=== PATIENT | male | born 1985 | race Caucasian/White ===

== ENCOUNTER 2019-03-15 00:48 | Inpatient (IN) | payer BC ==
[2019-03-15] MEDS ORDERED: MORPHINE SULFATE 4 MG/ML SYRINGE IV STA (01:15)
[2019-03-15] MEDS ORDERED: SODIUM CHLORIDE 0.9% 1,000 ML IV STA ×2 (01:15→02:48)
[2019-03-15] MEDS ORDERED: ONDANSETRON 4 MG/2 ML VIAL IVP STA (01:15)
[2019-03-15 01:53] LABS: Basophils # (A) 0.1 k/uL (0-0.2); Basophils % (A) 1 %; Eosinophils # (A) 0.2 k/uL (0-0.7); Eosinophils % (A) 1 %; HGB 18.6 gm/dL (13.0-17.5); Lymphocytes # (A) 0.7 k/uL (1.0-4.8); Lymphocytes % (A) 5 %; MCHC 34.5 g/dL (31.0-37.0); MCV 84.2 fL (80.0-100.0); Mean Platelet Volume 7.1; Monocytes # (A) 0.4 k/uL (0-1.0); Monocytes % (A) 3 %; Neutrophils # (A) 12.8 k/uL (1.3-7.7); Neutrophils % (A) 90 %; Platelet Count 317 k/uL (150-450); RBC 6.42 m/uL (4.30-5.90); RDW 12.4 % (11.5-15.5); WBC 14.2 k/uL (3.8-10.6)
[2019-03-15 01:58] LABS: Partial Thromboplastin Time 26.3 sec (22.0-30.0)
[2019-03-15 02:03] LABS: ALT 232 U/L (4-49); AST 303 U/L (17-59); African American GFR (CKD) >90 (>60 ml/min/1.73 sqM); Albumin 4.7 g/dL (3.5-5.0); Alkaline Phosphatase 114 U/L (38-126); Anion Gap 10 mmol/L; Blood Urea Nitrogen 15 mg/dL (9-20); Calcium 10.2 mg/dL (8.4-10.2); Carbon Dioxide 24 mmol/L (22-30); Chloride 107 mmol/L (98-107); Glucose 155 mg/dL (74-99); Non-African American GFR(CKD) >90 (>60 ml/min/1.73 sqM); Potassium 4.5 mmol/L (3.5-5.1); Sodium 141 mmol/L (137-145); Total Bilirubin 2.6 mg/dL (0.2-1.3); Total Protein 8.2 g/dL (6.3-8.2)
--- NOTE | 2019-03-15 02:11 | US ---
EXAMINATION TYPE: US gallbladder DATE OF EXAM: 03/15/2019 COMPARISON: NONE CLINICAL HISTORY: pain, vomit. Pain x 2 months, vomiting. EXAM MEASUREMENTS: Liver Length: 19.03 cm Gallbladder Wall: 0.27 cm CBD: 0.78 cm Right Kidney: 12.1 x 6.7 x 4.8 cm *Limited due to gas and body habitus. Pancreas: Obscured by overlying bowel gas. Liver: Appears to have an increased echogenicity. Measures enlarged. Hypoechoic area seen adjacent t o the gallbladder suggestive of focal fatty sparing measurin.2 x 1.5 x 1.4 cm. Gallbladder: Appears distended measuring 10.47 cm in length. Hyperechoic areas seen throughout the g allbladder. Evidence for sonographic Michael's sign: Yes CBD: Appears dilated. Right Kidney: No hydronephrosis or masses seen IMPRESSION: There are numerous gallstones. Large common bile duct could relate to gallbladder dysfunc tion. There is probably fatty infiltration of the liver.
[2019-03-15] MEDS ORDERED: IBUPROFEN 400 MG TAB PO PRN (02:32)
[2019-03-15] MEDS ORDERED: NALOXONE 0.4 MG/ML 1 ML VIAL IV PRN (02:32)
[2019-03-15] MEDS ORDERED: ONDANSETRON 4 MG/2 ML VIAL IVP PRN (02:32)
[2019-03-15] MEDS ORDERED: ACETAMINOPHEN TAB 325 MG TAB PO PRN (02:32)
--- NOTE | 2019-03-15 02:32 | ED ---
Abdominal Pain HPI - General Chief Complaint: Abdominal Pain Stated Complaint: Abdominal Pain Time Seen by Provider: 03/15/19 00:55 Source: patient Mode of arrival: ambulatory Limitations: no limitations - History of Present Illness Initial Comments: the patient is a 33-year-old male with no past medical history who presents emergency room with reported right upper quadrant abdominal pain. He states that his been present for the past few months. He will have episodes of pain which is usually after he eats food. States he went on a diet for several weeks and had improvement in his symptoms. Tonight he ate pizza for dinner and approximately 30 minutes after eating had sudden onset of right upper quadrant pain. It radiates around to his right back. She denies any fevers or chills. Admits to significant nausea with vomiting. Denies hematemesis. Denies any changes in his bowel or bladder habits. At any chest pain or shortness of breath. No pain radiating into his lower extremity. No ripping or tearing sensation to his back.not take any medications for her symptoms became prompting to the emergency room. There are no alleviating, precipitating or modifying factors - Related Data Previous Rx's Medication Instructions Recorded Amoxic-Pot Clav 875-125Mg 1 tab PO Q12HR #6 tablet 03/17/19 [Augmentin 875-125] Hydrocodone/Acetaminophen [[place] 1 tab PO Q6HR PRN 3 Days #12 tab 03/17/19 5-325] Allergies Allergy/AdvReac Type Severity Reaction Status Date / Time No Known Allergies Allergy Verified 03/20/19 08:22 Review of Systems ROS Statement: Those systems with pertinent positive or pertinent negative responses have been documented in the HPI. ROS Other: All systems not noted in ROS Statement are negative. Past Medical History Past Medical History: No Reported History History of Any Multi-Drug Resistant Organisms: None Reported Past Surgical History: No Surgical Hx Reported Past Psychological History: No Psychological Hx Reported Smoking Status: Never smoker Past Alcohol Use History: None Reported Past Drug Use History: Marijuana - Past Family History Father Additional Family Medical History / Comment(s): some kind of mass in the head Mother Additional Family Medical History / Comment(s): twisted intestine General Exam Limitations: no limitations General appearance: alert, in no apparent distress Head exam: Present: atraumatic, normocephalic, normal inspection Eye exam: Present: normal appearance, PERRL, EOMI. Absent: scleral icterus, conjunctival injection, periorbital swelling ENT exam: Present: normal exam, mucous membranes moist Neck exam: Present: normal inspection. Absent: tenderness, meningismus, l ymphadenopathy Respiratory exam: Present: normal lung sounds bilaterally. Absent: respiratory distress, wheezes, rales, rhonchi, stridor Cardiovascular Exam: Present: regular rate, normal rhythm, normal heart sounds. Absent: systolic murmur, diastolic murmur, rubs, gallop, clicks GI/Abdominal exam: Present: soft, tenderness (right upper quadrant), normal bowel sounds. Absent: distended, guarding, rebound, rigid Extremities exam: Present: normal inspection, full ROM, normal capillary refill. Absent: tenderness, pedal edema, joint swelling, calf tenderness Back exam: Present: normal inspection Neurological exam: Present: alert, oriented X3, CN II-XII intact Psychiatric exam: Present: normal affect, normal mood Skin exam: Present: warm, dry, intact, normal color. Absent: rash Course Vital Signs 03/15/19 00:55 Temperature 98.1 F Pulse Rate 86 Respiratory 20 Rate Blood Pressure 151/78 O2 Sat by Pulse 97 Oximetry Medical Decision Making - Medical Decision Making upon arrival the patient is placed into room 3. A thorough history and physical exam is performed. A peripheral IV is established. He is given 4 mg of Zofran for his nausea and 4 mg of morphine for pain control. Laboratory studies were conducted. It does demonstrate elevated white blood cell count as well as elevated AST and ALT. Bilirubin is 2.6. GB ultrasound demonstrates numerous gallstones with dilated common bile duct at 8 mm. I discussed diagnosis, differential treatment options patient. Serial abdominal exams demonstrate no peritoneal signs. I did recommend hospital admission for which patient did agree. Dr. Chavez was called and accepted admission. I'll place GI and surgery on consult. Patient was transported to the floor in stable condition - Lab Data Result diagrams: 03/17/19 05:38 03/17/19 05:38 Lab Results 03/15/19 03/15/19 03/15/19 Range/Units 01:34 01:34 01:34 WBC 14.2 H (3.8-10.6) k/uL RBC 6.42 H (4.30-5.90) m/uL Hgb 18.6 H (13.0-17.5) gm/dL Hct 54.0 H (39.0-53.0) % MCV 84.2 (80.0-100.0) fL MCH 29.0 (25.0-35.0) pg MCHC 34.5 (31.0-37.0) g/dL RDW 12.4 (11.5-15.5) % Plt Count 317 (150-450) k/uL Neutrophils % 90 % Lymphocytes % 5 % Monocytes % 3 % Eosinophils % 1 % Basophils % 1 % Neutrophils # 12.8 H (1.3-7.7) k/uL Lymphocytes # 0.7 L (1.0-4.8) k/uL Monocytes # 0.4 (0-1.0) k/uL Eosinophils # 0.2 (0-0.7) k/uL Basophils # 0.1 (0-0.2) k/uL PT 11.0 (9.0-12.0) sec INR 1.0 (<1.2) APTT 26.3 (22.0-30.0) sec Sodium 141 (137-145) mmol/L Potassium 4.5 (3.5-5.1) mmol/L Chloride 107 (98-107) mmol/L Carbon Dioxide 24 (22-30) mmol/L Anion Gap 10 mmol/L BUN 15 (9-20) mg/dL Creatinine 0.84 (0.66-1.25) mg/dL Est GFR (CKD-EPI)AfAm >90 (>60 ml/min/1.73 sqM) Est GFR (CKD-EPI)NonAf >90 (>60 ml/min/1.73 sqM) Glucose 155 H (74-99) mg/dL Calcium 10.2 (8.4-10.2) mg/dL Total Bilirubin 2.6 H (0.2-1.3) mg/dL AST 303 H (17-59) U/L ALT 232 H (4-49) U/L Alkaline Phosphatase 114 (38-126) U/L Total Protein 8.2 (6.3-8.2) g/dL Albumin 4.7 (3.5-5.0) g/dL Lipase 112 (23-300) U/L 03/15/19 03/15/19 03/16/19 Range/Units 07:30 07:30 05:30 WBC 10.0 9.4 (3.8-10.6) k/uL RBC 6.24 H 5.73 (4.30-5.90) m/uL Hgb 18.1 H 16.4 (13.0-17.5) gm/dL Hct 54.0 H 50.1 (39.0-53.0) % MCV 86.6 87.4 (80.0-100.0) fL MCH 29.0 28.7 (25.0-35.0) pg MCHC 33.5 32.8 (31.0-37.0) g/dL RDW 12.7 12.7 (11.5-15.5) % Plt Count 310 255 (150-450) k/uL Neutrophils % 57 % Lymphocytes % 29 % Monocytes % 7 % Eosinophils % 5 % Basophils % 1 % Neutrophils # 5.4 (1.3-7.7) k/uL Lymphocytes # 2.7 (1.0-4.8) k/uL Monocytes # 0.7 (0-1.0) k/uL Eosinophils # 0.4 (0-0.7) k/uL Basophils # 0.1 (0-0.2) k/uL PT (9.0-12.0) sec INR (<1.2) APTT (22.0-30.0) sec Sodium 143 (137-145) mmol/L Potassium 4.4 (3.5-5.1) mmol/L Chloride 108 H (98-107) mmol/L Carbon Dioxide 28 (22-30) mmol/L Anion Gap 7 mmol/L BUN 13 (9-20) mg/dL Creatinine 0.93 (0.66-1.25) mg/dL Est GFR (CKD-EPI)AfAm >90 (>60 ml/min/1.73 sqM) Est GFR (CKD-EPI)NonAf >90 (>60 ml/min/1.73 sqM) Glucose 105 H (74-99) mg/dL Calcium 9.7 (8.4-10.2) mg/dL Total Bilirubin 2.6 H (0.2-1.3) mg/dL AST 338 H (17-59) U/L ALT 349 H (4-49) U/L Alkaline Phosphatase 86 (38-126) U/L Total Protein 7.1 (6.3-8.2) g/dL Albumin 4.0 (3.5-5.0) g/dL Lipase (23-300) U/L 03/16/19 03/16/19 03/17/19 Range/Units 05:30 05:30 05:38 WBC 13.5 H (3.8-10.6) k/uL RBC 5.53 (4.30-5.90) m/uL Hgb 16.1 (13.0-17.5) gm/dL Hct 48.1 (39.0-53.0) % MCV 86.9 (80.0-100.0) fL MCH 29.1 (25.0-35.0) pg MCHC 33.5 (31.0-37.0) g/dL RDW 12.5 (11.5-15.5) % Plt Count 286 (150-450) k/uL Neutrophils % % Lymphocytes % % Monocytes % % Eosinophils % % Basophils % % Neutrophils # (1.3-7.7) k/uL Lymphocytes # (1.0-4.8) k/uL Monocytes # (0-1.0) k/uL Eosinophils # (0-0.7) k/uL Basophils # (0-0.2) k/uL PT (9.0-12.0) sec INR (<1.2) APTT (22.0-30.0) sec Sodium 141 (137-145) mmol/L Potassium 4.3 (3.5-5.1) mmol/L Chloride 107 (98-107) mmol/L Carbon Dioxide 28 (22-30) mmol/L Anion Gap 6 mmol/L BUN 11 (9-20) mg/dL Creatinine 1.01 (0.66-1.25) mg/dL Est GFR (CKD-EPI)AfAm >90 (>60 ml/min/1.73 sqM) Est GFR (CKD-EPI)NonAf >90 (>60 ml/min/1.73 sqM) Glucose 94 (74-99) mg/dL Calcium 9.0 (8.4-10.2) mg/dL Total Bilirubin 2.5 H (0.2-1.3) mg/dL AST 111 H (17-59) U/L ALT 275 H (4-49) U/L Alkaline Phosphatase 72 (38-126) U/L Total Protein (6.3-8.2) g/dL Albumin (3.5-5.0) g/dL Lipase (23-300) U/L 03/17/19 Range/Units 05:38 WBC (3.8-10.6) k/uL RBC (4.30-5.90) m/uL Hgb (13.0-17.5) gm/dL Hct (39.0-53.0) % MCV (80.0-100.0) fL MCH (25.0-35.0) pg MCHC (31.0-37.0) g/dL RDW (11.5-15.5) % Plt Count (150-450) k/uL Neutrophils % % Lymphocytes % % Monocytes % % Eosinophils % % Basophils % % Neutrophils # (1.3-7.7) k/uL Lymphocytes # (1.0-4.8) k/uL Monocytes # (0-1.0) k/uL Eosinophils # (0-0.7) k/uL Basophils # (0-0.2) k/uL PT (9.0-12.0) sec INR (<1.2) APTT (22.0-30.0) sec Sodium 140 (137-145) mmol/L Potassium 4.6 (3.5-5.1) mmol/L Chloride 104 (98-107) mmol/L Carbon Dioxide 27 (22-30) mmol/L Anion Gap 9 mmol/L BUN 12 (9-20) mg/dL Creatinine 1.01 (0.66-1.25) mg/dL Est GFR (CKD-EPI)AfAm >90 (>60 ml/min/1.73 sqM) Est GFR (CKD-EPI)NonAf >90 (>60 ml/min/1.73 sqM) Glucose 128 H (74-99) mg/dL Calcium 9.6 (8.4-10.2) mg/dL Total Bilirubin 1.7 H (0.2-1.3) mg/dL AST 72 H (17-59) U/L ALT 214 H (4-49) U/L Alkaline Phosphatase 78 (38-126) U/L Total Protein 6.8 (6.3-8.2) g/dL Albumin 3.7 (3.5-5.0) g/dL Lipase (23-300) U/L - EKG Data EKG Comments: EKG demonstrates a normal sinus rhythm with a ventricular rate of 92. NV interval 150. QRS 96. QTC of 477. There are frequent PVCs in a bigeminy rhythm. No acute ST segment elevations or depressions concerning for ischemic changes Disposition Clinical Impression: Abdominal pain, Choledocholithiasis Disposition: ADMITTED IP TO THIS [facility] Condition: Stable Is patient prescribed a controlled substance at d/c from ED?: No Decision to Admit Reason: Admit from EC Decision Date: 03/15/19 Decision Time: 02:32
[2019-03-15] MEDS: MORPHINE SULFATE 4 MG/ML SYRINGE IV PRN ×5 (03:39→20:15)
--- NOTE | 2019-03-15 03:41 | P.HPIM ---
History of Present Illness H&P Date: 03/15/19 Chief Complaint: abdominal pain 33-year-old male with no significant past medical history Patient reports that for the past couple months he's been having some off-and-on dull achy abdominal discomfort he has recently started on [employer] to lose weight and he has been losing weight. However over the past 2 days he was having some worsening in his right upper quadrant abdominal pain and today after he had pizza he experienced sharp severe pain 10 out of 10 in severity associated with nausea and repeated vomiting for 3 hours nonbloody nonbilious just food contents. [place] very miserable denies any fevers or chills he stated that home waiting for the pain to go away drinking plenty of water however with no much improvement pain kept coming in frequent attacks. Eventually decided to come to the hospital In the ED his blood work showed elevated liver enzymes no leukocytosis. Ultrasound of the abdomen suggested gallstones multiple withdilatation of the common bile duct patient admitted for general surgery evaluation Patient otherwise denies any fevers chills chest pain trouble breathing denies any changes in his bowel or urinary habits Review of Systems Pertinent positives as noted in HPI. All other systems were reviewed and are negative Past Medical History Past Medical History: No Reported History History of Any Multi-Drug Resistant Organisms: None Reported Past Surgical History: No Surgical Hx Reported Past Psychological History: No Psychological Hx Reported Smoking Status: Never smoker Past Alcohol Use History: None Reported Past Drug Use History: Marijuana Medications and Allergies Home Medications Medication Instructions Recorded Confirmed Type No Known Home Medications 03/15/19 03/15/19 History Allergies Allergy/AdvReac Type Severity Reaction Status Date / Time No Known Allergies Allergy Verified 03/15/19 03:24 Physical Exam Vitals: Vital Signs Temp Pulse Resp BP Pulse Ox 03/15/19 00:55 98.1 F 86 20 151/78 97 Intake and Output 03/14/19 03/14/19 03/15/19 14:59 22:59 06:59 Other: Weight 145.83 kg Constitutional: No acute distress, conversant, pleasant Eyes: Anicteric sclerae, moist conjunctiva, no lid-lag Pupils equal round reactive to light ENMT: NC/AT Oropharynx clear, no erythema, exudates Neck: Supple, FROM, no masses, or JVD No carotid bruits No thyromegaly Lungs: Clear to auscultation Clear to percussion Normal respiratory effort, no accessory muscle use Cardiovascular: Heart regular in rate and rhythm, No murmurs, gallops, or rubs No peripheral edema Abdominal: Soft, right upper quadrant discomfort to deep palpation no guarding, rebound or rigidity Abdomen moving with respiration Normoactive bowel sounds No hepatomegaly, No splenomegaly No palpable mass No abdominal wall hernia noted Skin: Normal temperature, tone, texture, turgor No induration No subcutaneous nodules No rash, lesions No ulcers Extremities: No digital cyanosis No clubbing Pedal pulses intact and symmetrical Radial pulses intact and symmetrical No calf tenderness Psychiatric: Alert and oriented to person, place and time Appropriate affect fair judgement Neuro Muscles Strength 5/5 in all 4 extremities Sensation to light touch grossly present throughout Cranial nerves II-XII grossly intact No focal sensory deficits Lymphatics: no palpable cervical or supraclavicular , or inguinal lymph nodes Results CBC & Chem 7: 03/15/19 01:34 03/15/19 01:34 Labs: Abnormal Lab Results - Last 24 Hours (Table) 03/15/19 03/15/19 Range/Units 01:34 01:34 WBC 14.2 H (3.8-10.6) k/uL RBC 6.42 H (4.30-5.90) m/uL Hgb 18.6 H (13.0-17.5) gm/dL Hct 54.0 H (39.0-53.0) % Neutrophils # 12.8 H (1.3-7.7) k/uL Lymphocytes # 0.7 L (1.0-4.8) k/uL Glucose 155 H (74-99) mg/dL Total Bilirubin 2.6 H (0.2-1.3) mg/dL AST 303 H (17-59) U/L ALT 232 H (4-49) U/L Assessment and Plan Assessment: 33-year-old male with no significant past medical history Admitted under observation with anticipated length of stay < than 2 midnights due to symptomatic choledocholithiasis with multiple gallstones and dilated common bile duct Plan: symptomtatic gallstones with choledocholithiasis Elevated liver enzymes Symptomatic control IV fluid hydration Nothing by mouth Pain control Abdominal ultrasound reviewed Gen. surgery consultation Obesity Counseled for lifestyle modification and weight loss full code DVT prophylaxis: heparin subcu 3 times a day Discussed with: Patient, ER, RN Anticipated length of stay less than [address]:home A total of 60 minutes was spent on the care of this complex patient more than 50% of the time was spent in counseling and care coordination.
[2019-03-15 07:46] LABS: HGB 18.1 gm/dL (13.0-17.5); MCHC 33.5 g/dL (31.0-37.0); MCV 86.6 fL (80.0-100.0); Mean Platelet Volume 6.7; Platelet Count 310 k/uL (150-450); RBC 6.24 m/uL (4.30-5.90); RDW 12.7 % (11.5-15.5)
[2019-03-15 08:00] LABS: ALT 349 U/L (4-49); AST 338 U/L (17-59); African American GFR (CKD) >90 (>60 ml/min/1.73 sqM); Alkaline Phosphatase 86 U/L (38-126); Anion Gap 7 mmol/L; Blood Urea Nitrogen 13 mg/dL (9-20); Calcium 9.7 mg/dL (8.4-10.2); Carbon Dioxide 28 mmol/L (22-30); Chloride 108 mmol/L (98-107); Glucose 105 mg/dL (74-99); Non-African American GFR(CKD) >90 (>60 ml/min/1.73 sqM); Potassium 4.4 mmol/L (3.5-5.1); Sodium 143 mmol/L (137-145); Total Bilirubin 2.6 mg/dL (0.2-1.3); Total Protein 7.1 g/dL (6.3-8.2)
[2019-03-15] MEDS: HEPARIN SODIUM,PORCINE 5,000 UNIT/ML 1 ML VIAL SQ SCH ×3 (08:16→22:59)
[2019-03-15] MEDS: PIPERACILLIN-TAZOBACTAM 3.375 GM in SODIUM CHLORIDE 0.9% 100 ML IVPB SCH ×2 (11:54→20:15)
--- NOTE | 2019-03-15 12:21 | P.GSCN ---
<Milagros Michelle - Last Filed: 03/15/19 12:16> History of Present Illness Consult date: 03/15/19 Reason for Consult: cholelithiasis Requesting physician: Viviana cAosta History of present illness: CHIEF COMPLAINT: abdominal pain HISTORY OF PRESENT ILLNESS: 33-year-old female who presented to the emergency room to complain of abdominal pain. Patient reports the pain is in his right upper quadrant. He reports he has had this pain before and has suspected it was due to his gallbladder. He reports this time the pain went into his back so he decided to come to the emergency room for further evaluation. patient reports having nausea and vomiting prior to hospitalization which has resolved at the time of examination. Patient reports his pain is currently tolerable. He has been receiving IV morphine. PAST MEDICAL HISTORY: See list. PAST SURGICAL HISTORY: See list. SOCIAL HISTORY: No illicit drug use. REVIEW OF SYSTEMS: CONSTITUTIONAL: Denies fever or chills. HEENT: Denies blurred vision, vision changes, or eye pain. Denies hemoptysis CARDIOVASCULAR: Denies chest pain or pressure. RESPIRATORY: No shortness of breath. GASTROINTESTINAL: Refer to HPI for pertinent findings HEMATOLOGIC: Denies bleeding disorders. GENITOURINARY: Denies any blood in urine. SKIN: Denies pruitis. Denies rash. PHYSICAL EXAM: VITAL SIGNS: Reviewed. GENERAL: Well-developed in no acute distress. HEENT: No sclera icterus. Extraocular movements grossly intact. Moist buccal mucosa. Head is atraumatic, normocephalic. ABDOMEN: Soft. Nondistended. mild tenderness with palpation of right upper quadrant. NEUROLOGIC: Alert and oriented. Cranial nerves II through XII grossly intact. LABORATORY DATA: WBC 14.2. Repeat 10.0. Laboratory data upon admission bilirubin 2.6. AST 303. ALT 232. Repeat labs this morning bilirubin 2.6. AST 338. ALT 349. IMAGING: abdominal ultrasound: Numerous gallstones. Large common bile duct could relate to gallbladder dysfunction. Probably fatty infiltration of the liver. ASSESSMENT: 1. Abdominal pain, nausea, vomiting 2. Cholelithiasis 3. Suspected choledocholithiasis 4. Hyperbilirubinemia 5. Transaminitis PLAN: nothing by mouth. Continue IV fluids Begin Zosyn IV every 8 hours GI on consult. Patient to undergo ERCP this afternoon. Patient tentatively scheduled for laparoscopic cholecystectomy tomorrow with Dr. Lamb pending repeat CMP in AM Nurse practitioner note has been reviewed by physician. Signing provider agrees with the documented findings, assessment, and plan of care. Past Medical History Past Medical History: No Reported History History of Any Multi-Drug Resistant Organisms: None Reported Past Surgical History: No Surgical Hx Reported Past Psychological History: No Psychological Hx Reported Smoking Status: Never smoker Past Alcohol Use History: None Reported Past Drug Use History: Marijuana - Past Family History Father Additional Family Medical History / Comment(s): some kind of mass in the head Mother Additional Family Medical History / Comment(s): twisted intestine Medications and Allergies Home Medications Medication Instructions Recorded Confirmed Type No Known Home Medications 03/15/19 03/15/19 History Allergies Allergy/AdvReac Type Severity Reaction Status Date / Time No Known Allergies Allergy Verified 03/16/19 13:37 Surgical - Exam Vital Signs Temp Pulse Resp BP Pulse Ox 98.1 F 86 20 151/78 97 03/15/19 00:55 03/15/19 00:55 03/15/19 00:55 03/15/19 00:55 03/15/19 00:55 Results - Labs 03/15/19 07:30 03/15/19 07:30 Abnormal Lab Results - Last 24 Hours (Table) 03/15/19 03/15/19 03/15/19 Range/Units 01:34 01:34 07:30 WBC 14.2 H (3.8-10.6) k/uL RBC 6.42 H 6.24 H (4.30-5.90) m/uL Hgb 18.6 H 18.1 H (13.0-17.5) gm/dL Hct 54.0 H 54.0 H (39.0-53.0) % Neutrophils # 12.8 H (1.3-7.7) k/uL Lymphocytes # 0.7 L (1.0-4.8) k/uL Chloride (98-107) mmol/L Glucose 155 H (74-99) mg/dL Total Bilirubin 2.6 H (0.2-1.3) mg/dL AST 303 H (17-59) U/L ALT 232 H (4-49) U/L 03/15/19 Range/Units 07:30 WBC (3.8-10.6) k/uL RBC (4.30-5.90) m/uL Hgb (13.0-17.5) gm/dL Hct (39.0-53.0) % Neutrophils # (1.3-7.7) k/uL Lymphocytes # (1.0-4.8) k/uL Chloride 108 H (98-107) mmol/L Glucose 105 H (74-99) mg/dL Total Bilirubin 2.6 H (0.2-1.3) mg/dL AST 338 H (17-59) U/L ALT 349 H (4-49) U/L Diabetes panel 03/15/19 03/15/19 Range/Units 01:34 07:30 Sodium 141 143 (137-145) mmol/L Potassium 4.5 4.4 (3.5-5.1) mmol/L Chloride 107 108 H (98-107) mmol/L Carbon Dioxide 24 28 (22-30) mmol/L BUN 15 13 (9-20) mg/dL Creatinine 0.84 0.93 (0.66-1.25) mg/dL Glucose 155 H 105 H (74-99) mg/dL Calcium 10.2 9.7 (8.4-10.2) mg/dL AST 303 H 338 H (17-59) U/L ALT 232 H 349 H (4-49) U/L Alkaline Phosphatase 114 86 (38-126) U/L Total Protein 8.2 7.1 (6.3-8.2) g/dL Albumin 4.7 4.0 (3.5-5.0) g/dL Calcium panel 03/15/19 03/15/19 Range/Units 01:34 07:30 Calcium 10.2 9.7 (8.4-10.2) mg/dL Albumin 4.7 4.0 (3.5-5.0) g/dL Pituitary panel 03/15/19 03/15/19 Range/Units 01:34 07:30 Sodium 141 143 (137-145) mmol/L Potassium 4.5 4.4 (3.5-5.1) mmol/L Chloride 107 108 H (98-107) mmol/L Carbon Dioxide 24 28 (22-30) mmol/L BUN 15 13 (9-20) mg/dL Creatinine 0.84 0.93 (0.66-1.25) mg/dL Glucose 155 H 105 H (74-99) mg/dL Calcium 10.2 9.7 (8.4-10.2) mg/dL Adrenal panel 03/15/19 03/15/19 Range/Units 01:34 07:30 Sodium 141 143 (137-145) mmol/L Potassium 4.5 4.4 (3.5-5.1) mmol/L Chloride 107 108 H (98-107) mmol/L Carbon Dioxide 24 28 (22-30) mmol/L BUN 15 13 (9-20) mg/dL Creatinine 0.84 0.93 (0.66-1.25) mg/dL Glucose 155 H 105 H (74-99) mg/dL Calcium 10.2 9.7 (8.4-10.2) mg/dL Total Bilirubin 2.6 H 2.6 H (0.2-1.3) mg/dL AST 303 H 338 H (17-59) U/L ALT 232 H 349 H (4-49) U/L Alkaline Phosphatase 114 86 (38-126) U/L Total Protein 8.2 7.1 (6.3-8.2) g/dL Albumin 4.7 4.0 (3.5-5.0) g/dL <Jed Lamb - Last Filed: 03/16/19 13:42> Surgical - Exam Vital Signs Temp Pulse Resp BP Pulse Ox 98.1 F 86 20 151/78 97 03/15/19 00:55 03/15/19 00:55 03/15/19 00:55 03/15/19 00:55 03/15/19 00:55 Results - Labs 03/16/19 05:30 03/16/19 05:30 Abnormal Lab Results - Last 24 Hours (Table) 03/16/19 Range/Units 05:30 Total Bilirubin 2.5 H (0.2-1.3) mg/dL AST 111 H (17-59) U/L ALT 275 H (4-49) U/L Diabetes panel 03/16/19 03/16/19 Range/Units 05:30 05:30 Sodium 141 (137-145) mmol/L Potassium 4.3 (3.5-5.1) mmol/L Chloride 107 (98-107) mmol/L Carbon Dioxide 28 (22-30) mmol/L BUN 11 (9-20) mg/dL Creatinine 1.01 (0.66-1.25) mg/dL Glucose 94 (74-99) mg/dL Calcium 9.0 (8.4-10.2) mg/dL AST 111 H (17-59) U/L ALT 275 H (4-49) U/L Alkaline Phosphatase 72 (38-126) U/L Calcium panel 03/16/19 Range/Units 05:30 Calcium 9.0 (8.4-10.2) mg/dL Pituitary panel 03/16/19 Range/Units 05:30 Sodium 141 (137-145) mmol/L Potassium 4.3 (3.5-5.1) mmol/L Chloride 107 (98-107) mmol/L Carbon Dioxide 28 (22-30) mmol/L BUN 11 (9-20) mg/dL Creatinine 1.01 (0.66-1.25) mg/dL Glucose 94 (74-99) mg/dL Calcium 9.0 (8.4-10.2) mg/dL Adrenal panel 03/16/19 03/16/19 Range/Units 05:30 05:30 Sodium 141 (137-145) mmol/L Potassium 4.3 (3.5-5.1) mmol/L Chloride 107 (98-107) mmol/L Carbon Dioxide 28 (22-30) mmol/L BUN 11 (9-20) mg/dL Creatinine 1.01 (0.66-1.25) mg/dL Glucose 94 (74-99) mg/dL Calcium 9.0 (8.4-10.2) mg/dL Total Bilirubin 2.5 H (0.2-1.3) mg/dL AST 111 H (17-59) U/L ALT 275 H (4-49) U/L Alkaline Phosphatase 72 (38-126) U/L Assessment and Plan Assessment: laparoscopic cholecystectomy in the a.m.
[2019-03-15] MEDS ORDERED: INDOMETHACIN 50MG SUPPOSITORY RECTAL ONE (13:00)
[2019-03-15] MEDS ORDERED: SODIUM CHLORIDE 0.9% 1,000 ML IV ONE (13:44)
[2019-03-15] MEDS ORDERED: PROPOFOL 10 MG/ML 20 ML VIAL IV ONE (13:45)
[2019-03-15] MEDS ORDERED: MIDAZOLAM 2 MG/2 ML VIAL ONE (13:45)
[2019-03-15] MEDS ORDERED: LIDOCAINE 1% INJ 10MG/ML (20 ML MDV) ONE (13:45)
[2019-03-15] MEDS ORDERED: IOPAMIDOL-300 50ML BTL MISCELLANE ONE (13:45)
[2019-03-15] MEDS ORDERED: fentaNYL (PF) 50 MCG/ML 2 ML AMP ONE (13:45)
[2019-03-15] MEDS ORDERED: KETAMINE 10 MG/ML 20 ML VIAL ONE (13:45)
--- NOTE | 2019-03-15 14:34 | P.PCN ---
Date of Procedure: 03/15/19 Procedure(s) Performed: Brief history: Patient is a 33 year-old pleasant white male, scheduled for an ERCP as part of evaluation of abdominal pain and elevated serum transaminases for the last 2 days' duration.He was noted to have a bilirubin of 2.8. Ultrasound did show multiple gallstones and slightly dilated common bile duct. Procedure performed: ERCP With biliary sphincterotomy and balloon stone extraction Preoperative diagnoses:Abdominal pain/elevated LFTs and jaundice IV sedation per anesthesia: Procedure: After informed consent was obtained from the patient and after the risks benefits and complications including bleeding perforation and pancreatitis explained in detail the patient was brought into the endoscopy unit. The patient was placed in prone position and IV conscious sedation was administered by anesthesia under continuous monitoring. The Olympus side-viewing duodenoscope was then inserted into the mouth and esophagus intubated without any difficulty. The scope was gradually advanced into the stomach and duodenum. The major papilla was identified without any difficulty.Initial cannulation resulted in opacification of the pancreatic duct that appeared normal. Subsequent cannulation with the guidewire resulted in opacification of the common bile duct and upon injection of the dye there was small faint filling defects noted in the distal common bile duct. At this time a biliary sphincterotomy was performed over a guidewire after the catheter was exchanged with a biliary sphincterotome. The sphincterotomy was performed in 11 o'clock position and was extended to 1 cm. Following this an 8.5 mm balloon was passed over the guidewire into the proximal CBD, gently inflated and withdrawn and 2 small stones seen exiting the ampulla. Repeat occlusion cholangio-Chris was performed and no other filling defects were seen. Patient tolerated the procedure well. Impression: Normal-appearing pancreatic duct Slightly dilated common bile duct with 2 small filling defects status post biliary sphincterotomy and balloon stone extraction as described above Recommendations: The findings of this examination were discussed with the patient as well as a family . Start him on clear liquid diet. Repeat labs in the morning.
--- NOTE | 2019-03-15 15:18 | FL ---
Fluoroscopy HISTORY: Common bile duct stones, pain and vomiting 2 minutes 29 seconds fluoroscopy time supplied to the referring clinician. 2 intraoperative C-arm im ages document the procedure. See dictated report from gastroenterology.
[2019-03-15] MEDS ORDERED: LACTATED RINGERS 1,000 ML IV SCH (18:57)
--- NOTE | 2019-03-15 19:01 | CONS ---
CONSULTATION DATE OF DICTATION: 03/15/2019 REASON FOR CONSULTATION: Abdominal pain, elevated LFTs. HISTORY OF PRESENT ILLNESS: The patient is a 33-year-old pleasant white male admitted to the hospital with intermittent epigastric and right upper quadrant abdominal pain for the last one-month duration. He started having this episode yesterday, came to the emergency room and was noted to have elevated LFTs and mild jaundice. Ultrasound showed multiple gallstones and mild biliary ductal dilation and hence we are consulted for an ERCP. The patient denies any nausea, vomiting. He reports no fever, chills, night sweats. PAST MEDICAL HISTORY: Unremarkable. MEDICATIONS AT HOME: None. ALLERGIES: NO KNOWN DRUG ALLERGIES. SOCIAL HISTORY: No smoking. No alcohol use. FAMILY HISTORY: Unremarkable. REVIEW OF SYSTEMS: CARDIOPULMONARY: No chest pain or shortness of breath. GENITOURINARY: No dysuria or hematuria. MUSCULOSKELETAL: Unremarkable. SKIN: Unremarkable. ENDOCRINE: Unremarkable. PSYCHIATRIC: Unremarkable. NEUROLOGY: Unremarkable. ENT/VISION: Unremarkable. CONSTITUTIONAL: No recent weight loss. No fever, chills, night sweats. PHYSICAL EXAMINATION: Appears comfortable. No apparent distress. Vital signs are stable. Blood pressure is 132/86, pulse rate 82 per minute and afebrile. HEENT examination unremarkable. Conjunctivae pink. Sclerae anicteric. Oral cavity no lesions. NECK: No JVD or lymph node enlargement. CHEST: Clear to auscultation. HEART: Regular rate and rhythm. ABDOMEN: Soft. Bowel sounds are positive. Mild tenderness in the epigastric area. EXTREMITIES: No pedal edema. SKIN: No rashes. NEUROLOGIC: Alert and oriented x3. No focal deficits. LABS: Labs done today show T-bilirubin is 2.8. AST and ALT are 303 and 232, respectively. Alkaline phosphatase 114. WBC 14.2, hemoglobin 18.6, platelets are normal. IMPRESSION: This is a patient who presented to the hospital with acute onset of severe epigastric pain associated with nausea, vomiting, and noted to have elevated liver function tests and jaundice. Ultrasound did show evidence of gallstones and mild biliary ductal dilation with elevated LFTs, suspicious for common bile duct stone. RECOMMENDATIONS: Proceed with ERCP today. Discussed with patient risks, benefits and complications, including bleeding, perforation and pancreatitis, and he is agreeable to it. Thank you for this consultation. MMODL / IJN: [id number] /
--- NOTE | 2019-03-15 19:05 | P.PN ---
Progress Note - Text Progress Note Date: 03/15/19 (delayed charting seen at 1200) Hospitalist Interval Note Patient seen and examined at bedside. Denies any current abdominal pain, nausea, or vomiting. No chest pain or shortness of breath. Reports that he is feeling thirsty but not necessarily hungry. Vital signs reviewed General: Ill-appearing, no distress, appears at stated age, obese Derm: warm, dry Head: atraumatic, normocephalic, symmetric Eyes: EOMI, no lid lag, anicteric sclera Mouth: no lip lesion, mucus membranes moist Cardiovascular: S1S2 reg, no murmur, positive posterior tibial pulse bilateral, Lungs: CTA bilateral, no rhonchi, no rales , no accessory muscle use Abdominal: soft, nontender to palpation, no guarding, no appreciable organomegaly Ext: no gross muscle atrophy, no edema, no contractures Neuro: CN II-XI grossly intact, no focal neuro deficits Psych: Alert, oriented, appropriate affect Assessment/Plan: Ascending cholangitis with choledocholithiasis -Continue with Zosyn therapy, IV fluids -Plan is for ERCP today and cholecystectomy tomorrow -Antiemetics -Pain control -Clear liquid diet in between ERCP and cholecystectomy Morbid obesity -Outpatient structured weight loss Social stressors -We will need PCP on discharge This is an update note for patient , for full note on 03/15/19 see H and P. There is no charge associated with this note.
[2019-03-16] MEDS: PIPERACILLIN-TAZOBACTAM 3.375 GM in SODIUM CHLORIDE 0.9% 100 ML IVPB SCH ×3 (03:30→20:15)
[2019-03-16 05:51] LABS: Basophils # (A) 0.1 k/uL (0-0.2); Basophils % (A) 1 %; Eosinophils # (A) 0.4 k/uL (0-0.7); Eosinophils % (A) 5 %; HCT 50.1 % (39.0-53.0); HGB 16.4 gm/dL (13.0-17.5); Lymphocytes # (A) 2.7 k/uL (1.0-4.8); Lymphocytes % (A) 29 %; MCH 28.7 pg (25.0-35.0); MCHC 32.8 g/dL (31.0-37.0); MCV 87.4 fL (80.0-100.0); Mean Platelet Volume 6.7; Monocytes # (A) 0.7 k/uL (0-1.0); Monocytes % (A) 7 %; Neutrophils # (A) 5.4 k/uL (1.3-7.7); Neutrophils % (A) 57 %; Platelet Count 255 k/uL (150-450); RBC 5.73 m/uL (4.30-5.90); RDW 12.7 % (11.5-15.5); WBC 9.4 k/uL (3.8-10.6)
[2019-03-16 06:01] LABS: African American GFR (CKD) >90 (>60 ml/min/1.73 sqM); Anion Gap 6 mmol/L; Blood Urea Nitrogen 11 mg/dL (9-20); Carbon Dioxide 28 mmol/L (22-30); Chloride 107 mmol/L (98-107); Glucose 94 mg/dL (74-99); Non-African American GFR(CKD) >90 (>60 ml/min/1.73 sqM); Potassium 4.3 mmol/L (3.5-5.1); Sodium 141 mmol/L (137-145)
[2019-03-16 07:59] LABS: Total Bilirubin 2.5 mg/dL (0.2-1.3)
[2019-03-16] MEDS: HEPARIN SODIUM,PORCINE 5,000 UNIT/ML 1 ML VIAL SQ SCH ×2 (08:44→16:48)
[2019-03-16] MEDS ORDERED: IV FLUID CONTINUATION 800 ML IV ONE (13:35)
[2019-03-16] MEDS ORDERED: ONDANSETRON 4 MG/2 ML VIAL IVP ONE ×3 (13:35→15:32)
[2019-03-16] MEDS ORDERED: DEXAMETHASONE SOD PHOSPHATE 10 MG/ML 1 ML VIAL IV ONE (13:36)
[2019-03-16] MEDS ORDERED: HEPARIN SODIUM,PORCINE 5,000 UNIT/ML 1 ML VIAL SQ ONE (13:50)
[2019-03-16] MEDS ORDERED: BUPIVACAIN-EPI 0.25%-1:200,000 30 ML VIAL SQ ONE ×2 (13:56→14:33)
[2019-03-16] MEDS ORDERED: PROPOFOL 10 MG/ML 20 ML VIAL IV ONE (14:00)
[2019-03-16] MEDS ORDERED: NEOSTIGMINE 1 MG/ML 10 ML VIAL ONE (14:00)
[2019-03-16] MEDS ORDERED: KETOROLAC 30 MG/ML 1 ML VIAL ONE (14:00)
[2019-03-16] MEDS ORDERED: LIDOCAINE 1% INJ 10MG/ML (20 ML MDV) ONE (14:00)
[2019-03-16] MEDS ORDERED: MIDAZOLAM 2 MG/2 ML VIAL ONE (14:00)
[2019-03-16] MEDS ORDERED: ROCURONIUM BROMIDE 10 MG/ML 10 ML VIAL IV ONE (14:00)
[2019-03-16] MEDS ORDERED: HYDROmorphone (PF) 1 MG/ML ONE (14:00)
[2019-03-16] MEDS ORDERED: SUCCINYLCHOLINE CHLORIDE 100 MG/5 ML SYR IV ONE (14:00)
[2019-03-16] MEDS ORDERED: fentaNYL (PF) 50 MCG/ML 2 ML AMP ONE (14:00)
[2019-03-16] MEDS ORDERED: GLYCOPYRROLATE 0.2 MG/ML 2 ML VIAL ONE (14:00)
--- NOTE | 2019-03-16 15:10 | P.OP ---
Date of Procedure: 03/16/19 Preoperative Diagnosis: cholelithiasis Cholecystitis Postoperative Diagnosis: cholelithiasis Cholecystitis Procedure(s) Performed: laparoscopic cholecystectomy Anesthesia: PJ Surgeon: Jed Lamb Estimated Blood Loss (ml): 20 Pathology: other (gallbladder) Condition: stable Disposition: PACU Description of Procedure: The patient was placed on the operating table. The patient received a general endotracheal tube anesthesia. The patients abdomen was prepped and draped in the usual sterile fashion. Through an infraumbilical stab incision, the fascia of the anterior abdominal wall was grasped with a pair of Kochers and then the Veress needle was placed in the peritoneal cavity. Position of the Veress needle was confirmed with positive drop test. The abdomen was then insufflated. After adequate insufflation, the 10 mm trocar was placed in the peritoneal cavity. Following this the laparoscope was placed in the peritoneal cavity. The patient was placed in the head-up, right side up position and then a 5 mm trocar was placed in the right lateral and right subcostal position under direct visualization. A 8 mm trocar was placed in the epigastric position. The gallbladder was grasped in the fundus and infundibulum. Traction on the gallbladder was placed in the lateral and the cephalad positions. the gallbladder was quite tense. The gallbladder had an opening made to evacuate bile to decompress the gallbladder. The gallbladder wa s aspirated. The triangle of Calot was could not be visualized secondary to significant inflammatory changes in the area of the cystic duct and common duct. At this point decided to take a dome down approach the gallbladder. The gallbladder was dissected off the liver bed using the Harmonic scissors. Once the gallbladder was completely dissected off liver bed. 2-0 Ethibond suture was placed around the gallbladder fundus and the gallbladder was ligated. The left the gallbladder was then transected with the Harmonic scissors. The gallbladder stump was then ligated with the Endoloop device. The gallbladder is brought out through the 8 mm trocar site. A HILLARY drain is placed in the operative field and brought out through a right lateral trocar site. The abdomen was irrigated is no bleeding seen. The trochars withdrawn. The skin was closed interrupted 3-0 Monocryl suture. Dermabond was applied. Patient top she will was sent to recovery room stable condition. l
[2019-03-16] MEDS ORDERED: HYDROmorphone 1 MG/ML 1 ML SYRINGE IVP ONE ×4 (15:37→15:47)
[2019-03-16] MEDS ORDERED: fentaNYL (PF) 50 MCG/ML 2 ML AMP IVP ONE (16:01)
[2019-03-16] MEDS: LACTATED RINGERS 1,000 ML IV SCH (16:47)
[2019-03-16 17:11] VITALS: RESP 18
[2019-03-16] MEDS ORDERED: HYDROmorphone 1 MG/ML 1 ML SYRINGE IVP STA (17:41)
--- NOTE | 2019-03-16 20:04 | P.PN ---
Subjective Progress Note Date: 03/16/19 (delayed charting seen at 1800) Principal diagnosis: abdominal pain Patient is a 33-year-old male in no significant past medical history no primary care physician presented to the emergency department with complaints of abdominal pain. In the ER he underwent an extensive evaluation. On arrival he was found to be hypertensive with a blood pressure 151/78 which resolved with pain control. Initial laboratory analysis showed an elevated white blood cell count, elevated bilirubin, elevated AST, and elevated ALT. He underwent gallbladder ultrasound which showed numerous gallstones associated with a large common bile duct. He is admitted for management of acute cholecystitis. GI and general surgery were consulted. He ultimately underwent an ERCP on 03/15 with removal of 2 common bile duct stones. He underwent laparoscopic cholecystectomy on 03/16 with placement of a HILLARY drain. Patient seen and examined at bedside. He complains of abdominal pain, slight nausea, and feeling tired after surgery. He denies chest pain, shortness breath, and dizziness Objective - Vital Signs Vital signs: Vital Signs Temp 97.7 F 03/16/19 16:45 Pulse 83 03/16/19 18:30 Resp 18 03/16/19 16:45 BP 140/86 03/16/19 18:30 Pulse Ox 92 L 03/16/19 18:30 Intake & Output 03/16/19 03/16/19 03/17/19 06:59 18:59 06:59 Intake Total 800 Output Total 60 Balance 740 Weight 145.45 kg Intake: IV 800 Output: Drainage 45 Right Abdomen 45 Estimated Blood Loss 15 Other: Voiding Method Toilet Toilet # Voids 1 - Exam General: non toxic, mild distress due to pain, appears at stated age, Obese Derm: warm, dry Head: atraumatic, normocephalic, symmetric Eyes: EOMI, no lid lag, anicteric sclera Mouth: no lip lesion, mucus membranes moist Cardiovascular: S1S2 reg, no murmur, positive posterior tibial pulse bilateral, Lungs: CTA bilateral, no rhonchi, no rales , no accessory muscle use Abdominal: soft, +tender to palpation diffusely, no guarding, no appreciable organomegaly, HILLARY drain in place, multiple port sites Ext: no gross muscle atrophy, no edema, no contractures Neuro: CN II-XI grossly intact, no focal neuro deficits Psych: Alert, oriented, appropriate affect - Labs CBC & Chem 7: 03/16/19 05:30 03/16/19 05:30 Labs: Abnormal Lab Results - Last 24 Hours (Table) 03/16/19 Range/Units 05:30 Total Bilirubin 2.5 H (0.2-1.3) mg/dL AST 111 H (17-59) U/L ALT 275 H (4-49) U/L Assessment and Plan Assessment: Cholecysititis with choledocholithiasis - S/p ERCP 03/15 with removal of 2 stones - s/p lap adrian 03/[address] -Continue with Zosyn over night - IV fluids -Antiemetics -Pain control -low fat diet Tranaminitis - due to above - rpeat levels in AM Morbid obesity BMI 41.2 -Outpatient structured weight loss Social stressors -We will need PCP on discharge DVT prophylaxis: SCDs Discussed with: Patient, nursing, Dr. Lamb Anticipated discharge: in AM Anticipated discharge place: home A total of 35 minutes was spent on the care of this complex patient more than 50% of the time was spent in counseling and care coordination.
[2019-03-16] MEDS: HYDROmorphone 1 MG/ML 1 ML SYRINGE IVP PRN ×2 (20:15→23:00)
[2019-03-17] MEDS: HYDROmorphone 1 MG/ML 1 ML SYRINGE IVP PRN ×3 (01:54→08:27)
[2019-03-17] MEDS: LACTATED RINGERS 1,000 ML IV SCH ×2 (01:55→08:29)
[2019-03-17] MEDS: HEPARIN SODIUM,PORCINE 5,000 UNIT/ML 1 ML VIAL SQ SCH ×2 (01:56→08:19)
[2019-03-17] MEDS: PIPERACILLIN-TAZOBACTAM 3.375 GM in SODIUM CHLORIDE 0.9% 100 ML IVPB SCH ×2 (04:08→11:31)
[2019-03-17 06:13] LABS: HCT 48.1 % (39.0-53.0); HGB 16.1 gm/dL (13.0-17.5); MCH 29.1 pg (25.0-35.0); MCHC 33.5 g/dL (31.0-37.0); MCV 86.9 fL (80.0-100.0); Mean Platelet Volume 6.8; Platelet Count 286 k/uL (150-450); RBC 5.53 m/uL (4.30-5.90); RDW 12.5 % (11.5-15.5); WBC 13.5 k/uL (3.8-10.6)
[2019-03-17 06:26] LABS: ALT 214 U/L (4-49); AST 72 U/L (17-59); African American GFR (CKD) >90 (>60 ml/min/1.73 sqM); Albumin 3.7 g/dL (3.5-5.0); Alkaline Phosphatase 78 U/L (38-126); Anion Gap 9 mmol/L; Blood Urea Nitrogen 12 mg/dL (9-20); Calcium 9.6 mg/dL (8.4-10.2); Carbon Dioxide 27 mmol/L (22-30); Chloride 104 mmol/L (98-107); Glucose 128 mg/dL (74-99); Non-African American GFR(CKD) >90 (>60 ml/min/1.73 sqM); Potassium 4.6 mmol/L (3.5-5.1); Sodium 140 mmol/L (137-145); Total Bilirubin 1.7 mg/dL (0.2-1.3); Total Protein 6.8 g/dL (6.3-8.2)
[2019-03-17 07:55] VITALS: TEMP 97.6
[2019-03-17] MEDS ORDERED: HYDROcodone/APAP 5-325MG 1 EACH TAB PO PRN (10:12)
[2019-03-17] MEDS ORDERED: KETOROLAC 30 MG/ML 1 ML VIAL IVP PRN (10:13)
[2019-03-17 11:22] VITALS: PULSE 75
--- NOTE | 2019-03-17 13:51 | P.PN ---
Subjective Progress Note Date: 03/17/19 CHIEF COMPLAINT: abdominal pain HISTORY OF PRESENT ILLNESS: patient is status post laparoscopic cholecystectomy. Postop day #1. Patient examined at the bedside. He is tolerating diet without nausea or vomiting. Patient complains of abdominal pain. He is currently receiving IV Dilaudid. WBC 13.5. Bilirubin 1.7. AST 72. ALT 214. PHYSICAL EXAM: VITAL SIGNS: Reviewed. GENERAL: Well-developed in no acute distress. HEENT: No sclera icterus. Extraocular movements grossly intact. Moist buccal mucosa. Head is atraumatic, normocephalic. ABDOMEN: Soft. Nondistended. appropriate surgical tenderness. HILLARY drain to right upper quadrant with serosanguineous drainage. NEUROLOGIC: Alert and oriented. Cranial nerves II through XII grossly intact. ASSESSMENT: 1. cholelithiasis and cholecystitis, status post laparoscopic cholecystectomy PLAN: -diet as tolerated -Increase activity as tolerated -Limit use of IV narcotics. Begin Melvin. Add Toradol as needed -Stable for discharge home today from a surgical standpoint. HILLARY drain to remain in place at [place]. HILLARY will be discontinued at patient's follow-up appointment with Dr. Lamb. Nurse practitioner note has been reviewed by physician. Signing provider agrees with the documented findings, assessment, and plan of care. Objective - Vital Signs Vital signs: Vital Signs Temp 97.6 F 03/17/19 07:20 Pulse 75 03/17/19 08:00 Resp 18 03/17/19 12:00 BP 127/71 03/17/19 07:20 Pulse Ox 93 L 03/17/19 07:20 Intake & Output 03/16/19 03/17/19 03/17/19 18:59 06:59 18:59 Intake Total 800 960 Output Total 60 Balance 740 960 Weight 145.45 kg Intake: IV 800 Oral 760 Other 200 Output: Drainage 45 Right Abdomen 45 Estimated Blood Loss 15 Other: Voiding Method Toilet Toilet Toilet # Voids 1 - Labs CBC & Chem 7: 03/17/19 05:38 03/17/19 05:38 Labs: Abnormal Lab Results - Last 24 Hours (Table) 03/17/19 03/17/19 Range/Units 05:38 05:38 WBC 13.5 H (3.8-10.6) k/uL Glucose 128 H (74-99) mg/dL Total Bilirubin 1.7 H (0.2-1.3) mg/dL AST 72 H (17-59) U/L ALT 214 H (4-49) U/L
--- NOTE | 2019-03-17 14:47 | P.DS ---
Providers Date of admission: 03/17/19 07:42 Expected date of discharge: 03/17/19 Attending physician: Jorge Moran MD Consults: 03/15/19 02:34 Consult Physician Urgent Consulting Provider: Jed Lamb Consult Reason/Comments: acute cholelithisis, acute choledocholithiasis Do you want consulting provider notified?: Yes Primary care physician: Stated None Hospital Course: Discharge Diagnosis: Acute cholecystitis Choledocholithiasis transaminitis Morbid obesity with BMI 41.2 Hospital Course: Patient is a 33-year-old male in no significant past medical history no primary care physician presented to the emergency department with complaints of abdominal pain. In the ER he underwent an extensive evaluation. On arrival he was found to be hypertensive with a blood pressure 151/78 which resolved with pain control. Initial laboratory analysis showed an elevated white blood cell count, elevated bilirubin, elevated AST, and elevated ALT. He underwent gallbladder ultrasound which showed numerous gallstones associated with a large common bile duct. He is admitted for management of acute cholecystitis. GI and general surgery were consulted. He ultimately underwent an ERCP on 03/15 with removal of 2 common bile duct stones. He underwent laparoscopic cholecystectomy on 03/16 with placement of a HILLARY drain.he did have a slightly elevated white blood cell count on 03/17 which was felt to be secondary to being postoperative. He was able to tolerate a diet and his pain was well-controlled on oral medications. He was determined stable for discharge home. He'll follow a low fat diet, follow-up with Dr. Lamb on 03/24 at 12. He will take Augmentin for 3 additional days. We have referred him to Dr. Quintero was indicated for PCP. Due to his Job he will stay off work until HILLARY drain is removed. Patient seen and examined at bedside. Still having some right upper quadrant pain, no nausea and tolerating a diet, no diarrhea, no vomiting Vital signs reviewed and stable. General: non toxic, no distress, appears at stated age, obese Derm: warm, dry Head: atraumatic, normocephalic, symmetric Eyes: EOMI, no lid lag, anicteric sclera Mouth: no lip lesion, mucus membranes moist Cardiovascular: S1S2 reg, no murmur, positive posterior tibial pulse bilateral, Lungs: CTA bilateral, no rhonchi, no rales , no accessory muscle use Abdominal: soft, +tender to palpation RUQ, no guarding, no appreciable organomegaly Ext: no gross muscle atrophy, no edema, no contractures Neuro: CN II-XI grossly intact, no focal neuro deficits Psych: Alert, oriented, appropriate affect A total of 25 minutes of time were spent preparing this complex discharge s donnie . Patient Condition at Discharge: Stable Plan - Discharge Summary New Discharge Prescriptions: New Hydrocodone/Acetaminophen [[place] 5-325] 1 tab PO Q6HR PRN 3 Days #12 tab PRN Reason: Pain Amoxic-Pot Clav 875-125Mg [Augmentin 875-125] 1 tab PO Q12HR #6 tablet Discharge Medication List Amoxic-Pot Clav 875-125Mg [Augmentin 875-125] 1 tab PO Q12HR #6 tablet 03/17/19 [Rx] Hydrocodone/Acetaminophen [[place] 5-325] 1 tab PO Q6HR PRN 3 Days #12 tab 03/17/19 [Rx] Follow up Appointment(s)/Referral(s): None,Stated [Primary Care Provider] - 1-2 days Olegario Thomson DO [REFERRING] - 1 Week Jed Lamb MD [STAFF PHYSICIAN] - 03/24/19 12:00 pm Activity/Diet/Wound Care/Special Instructions: Activity: as tolerated Diet: low fat Wound Care: leave drain in place until seen by Dr. Lamb Special Instructions: No driving while taking [place] No lifting over 10 pounds You may shower. No soaking or tub baths Very light activity until you are reevaluated at your follow up appointment with your surgeon Discharge/Stand Alone Forms: Work/Release Restrictions Form
== END 2019-03-17 15:11 | disposition home or self-care (01) | DRG 418 ==
LOC: EC 00:48 → 1SOBS 02:36 → OBSVTOIN 03-17 07:42
PROVIDERS: ADMIT Internal Medicine; ATTEND Internal Medicine
PROC: 0FC98ZZ Extirpation of Matter from Common Bile Duct, Via Natural or Artificial Opening Endoscopic (ICD-10-PCS; 2019-03-15 08:10)
PROC: 0FT44ZZ Resection of Gallbladder, Percutaneous Endoscopic Approach (ICD-10-PCS; principal; 2019-03-16 15:00)
DX: K80.66 Calculus of gallbladder and bile duct with acute and chronic cholecystitis without obstruction (principal); Z68.41 Body mass index [BMI] 40.0-44.9, adult; E66.01 Morbid (severe) obesity due to excess calories; E80.6 Other disorders of bilirubin metabolism; R74.0 Nonspecific elevation of levels of transaminase and lactic acid dehydrogenase [LDH]
CPT/HCPCS: 36415; 43262; 43277; 74330; 76705; 80048; 80053; 82247; 83690; 84075; 84450; 84460; 85025; 85027; 85610; 85730; 88304; 93005; 96361; 96374; 96375; 99285

== ENCOUNTER 2019-03-20 06:56 | Observation (INO) | payer BC ==
[2019-03-20] MEDS ORDERED: IOPAMIDOL CONTRAST (ORAL USE) VIAL PO STA (07:20)
[2019-03-20] MEDS ORDERED: HYDROmorphone 1 MG/ML 1 ML SYRINGE IVP STA (07:20)
[2019-03-20] MEDS ORDERED: ONDANSETRON 4 MG/2 ML VIAL IVP STA (07:20)
[2019-03-20] MEDS ORDERED: FAMOTIDINE 20 MG/2 ML VIAL IV STA (07:20)
[2019-03-20] MEDS ORDERED: SODIUM CHLORIDE 0.9% 1,000 ML IV STA (07:22)
--- NOTE | 2019-03-20 07:25 | ED ---
General Adult HPI - General Chief complaint: Abdominal Pain Stated complaint: Abd Pain Time Seen by Provider: 03/20/19 07:08 Source: patient, family, old records reviewed Mode of arrival: ambulatory Limitations: no limitations - History of Present Illness Initial comments: Patient is a pleasant 33-year-old male presenting to the emergency department with complaints of abdominal discomfort nausea vomiting fever. Patient has several days postop cholecystectomy. Patient started having discomfort yesterday afternoon. Patient does have associated nausea and vomited several times yellow emesis. Patient noticed fever around 5:30 this morning. No cough. No dysuria. No history of chronic similar problems. Symptoms have progressively worsened since onset. Patient is having slight bloody drainage from his drain tube. Patient has not passed gas or had a bowel movement in a couple of days. - Related Data Previous Rx's Medication Instructions Recorded Amoxic-Pot Clav 875-125Mg 1 tab PO Q12HR #6 tablet 03/17/19 [Augmentin 875-125] Hydrocodone/Acetaminophen [[place] 1 tab PO Q6HR PRN 3 Days #12 tab 03/17/19 5-325] Allergies Allergy/AdvReac Type Severity Reaction Status Date / Time No Known Allergies Allergy Verified 03/20/19 08:22 Review of Systems ROS Statement: Those systems with pertinent positive or pertinent negative responses have been documented in the HPI. ROS Other: All systems not noted in ROS Statement are negative. Constitutional: Reports: as per HPI, fever Eyes: Denies: eye pain ENT: Denies: ear pain Respiratory: Denies: cough Cardiovascular: Denies: chest pain Endocrine: Denies: fatigue Gastrointestinal: Reports: abdominal pain, nausea, vomiting Genitourinary: Denies: dysuria Musculoskeletal: Denies: back pain Skin: Denies: rash Neurological: Denies: weakness Past Medical History Past Medical History: No Reported History History of Any Multi-Drug Resistant Organisms: None Reported Past Surgical History: Cholecystectomy Past Psychological History: No Psychological Hx Reported Smoking Status: Never smoker Past Alcohol Use History: None Reported Past Drug Use History: Marijuana - Past Family History Father Additional Family Medical History / Comment(s): some kind of mass in the head Mother Additional Family Medical History / Comment(s): twisted intestine General Exam Limitations: no limitations General appearance: alert, in no apparent distress Head exam: Present: normocephalic Eye exam: Present: normal appearance Neck exam: Present: normal inspection Respiratory exam: Present: normal lung sounds bilaterally Cardiovascular Exam: Present: regular rate, normal rhythm Expanded Peripheral pulses: 2+: Posterior Tibialis (R), Posterior Tibialis (L) GI/Abdominal exam: Present: soft, tenderness (Moderate midline tenderness), diminished bowel sounds. Absent: distended, guarding, rebound, rigid, pulsatile mass Extremities exam: Present: normal inspection. Absent: pedal edema, calf tenderness Neurological exam: Present: alert Psychiatric exam: Present: normal affect, normal mood Skin exam: Present: normal color Course Vital Signs 03/20/19 03/20/19 07:05 08:06 Temperature 99.1 F 98.9 F Pulse Rate 72 73 Respiratory 20 20 Rate Blood Pressure 172/102 149/79 O2 Sat by Pulse 97 98 Oximetry - Reevaluation(s) Reevaluation #1: 03/20/19 09:59 Patient does not meet sepsis criteria at this time. EKG Findings - EKG Comments: EKG Findings:: Normal sinus rhythm 71. SC was before. QRS 90. QT 418. QTC 454. Normal axis. Normal QRS. No acute ST change. Medical Decision Making - Medical Decision Making Patient reevaluated and resting more comfortably in bed. Patient states discomfort has improved to 3/10. Nausea has improved. Patient updated on results and plan. Case was again discussed with Dr. Lamb who will admit with IV antibiotics. - Lab Data Result diagrams: 03/20/19 07:30 03/20/19 07:30 Lab Results 03/20/19 03/20/19 03/20/19 Range/Units 07:30 07:30 07:30 WBC 16.5 H (3.8-10.6) k/uL RBC 6.13 H (4.30-5.90) m/uL Hgb 18.2 H (13.0-17.5) gm/dL Hct 51.5 (39.0-53.0) % MCV 84.1 (80.0-100.0) fL MCH 29.7 (25.0-35.0) pg MCHC 35.3 (31.0-37.0) g/dL RDW 12.6 (11.5-15.5) % Plt Count 323 (150-450) k/uL Neutrophils % 88 % Lymphocytes % 6 % Monocytes % 4 % Eosinophils % 1 % Basophils % 1 % Neutrophils # 14.5 H (1.3-7.7) k/uL Lymphocytes # 0.9 L (1.0-4.8) k/uL Monocytes # 0.7 (0-1.0) k/uL Eosinophils # 0.2 (0-0.7) k/uL Basophils # 0.1 (0-0.2) k/uL PT (9.0-12.0) sec INR (<1.2) APTT (22.0-30.0) sec Sodium 142 (137-145) mmol/L Potassium 4.1 (3.5-5.1) mmol/L Chloride 109 H (98-107) mmol/L Carbon Dioxide 20 L (22-30) mmol/L Anion Gap 13 mmol/L BUN 14 (9-20) mg/dL Creatinine 0.72 (0.66-1.25) mg/dL Est GFR (CKD-EPI)AfAm >90 (>60 ml/min/1.73 sqM) Est GFR (CKD-EPI)NonAf >90 (>60 ml/min/1.73 sqM) Glucose 132 H (74-99) mg/dL Plasma Lactic Acid [place] 1.1 (0.7-2.0) mmol/L Calcium 10.1 (8.4-10.2) mg/dL Total Bilirubin 1.6 H (0.2-1.3) mg/dL AST 32 (17-59) U/L ALT 91 H (4-49) U/L Alkaline Phosphatase 80 (38-126) U/L Total Protein 7.9 (6.3-8.2) g/dL Albumin 4.4 (3.5-5.0) g/dL 03/20/19 Range/Units 07:30 WBC (3.8-10.6) k/uL RBC (4.30-5.90) m/uL Hgb (13.0-17.5) gm/dL Hct (39.0-53.0) % MCV (80.0-100.0) fL MCH (25.0-35.0) pg MCHC (31.0-37.0) g/dL RDW (11.5-15.5) % Plt Count (150-450) k/uL Neutrophils % % Lymphocytes % % Monocytes % % Eosinophils % % Basophils % % Neutrophils # (1.3-7.7) k/uL Lymphocytes # (1.0-4.8) k/uL Monocytes # (0-1.0) k/uL Eosinophils # (0-0.7) k/uL Basophils # (0-0.2) k/uL PT 10.7 (9.0-12.0) sec INR 1.0 (<1.2) APTT 25.3 (22.0-30.0) sec Sodium (137-145) mmol/L Potassium (3.5-5.1) mmol/L Chloride (98-107) mmol/L Carbon Dioxide (22-30) mmol/L Anion Gap mmol/L BUN (9-20) mg/dL Creatinine (0.66-1.25) mg/dL Est GFR (CKD-EPI)AfAm (>60 ml/min/1.73 sqM) Est GFR (CKD-EPI)NonAf (>60 ml/min/1.73 sqM) Glucose (74-99) mg/dL Plasma Lactic Acid Avni (0.7-2.0) mmol/L Calcium (8.4-10.2) mg/dL Total Bilirubin (0.2-1.3) mg/dL AST (17-59) U/L ALT (4-49) U/L Alkaline Phosphatase (38-126) U/L Total Protein (6.3-8.2) g/dL Albumin (3.5-5.0) g/dL - Radiology Data Radiology results: report reviewed (Computed tomography scan of the abdomen and pelvis questions if draining may be malposition. There is fluid in the gallbladder fossa as well as a small calcification which may represent a drop stone. Developing abscess not excluded.) Disposition Clinical Impression: Postsurgical fever, Abdominal pain Disposition: ADMITTED IP TO THIS HOSP Is patient prescribed a controlled substance at d/c from ED?: No Referrals: None,Stated [Primary Care Provider] - 1-2 days Decision Time: 09:59
[2019-03-20] MEDS: SODIUM CHLORIDE 0.9% 500 ML 500 ML IV SCH ×2 (07:51→08:03)
[2019-03-20 08:00] LABS: Basophils # (A) 0.1 k/uL (0-0.2); Basophils % (A) 1 %; Eosinophils # (A) 0.2 k/uL (0-0.7); Eosinophils % (A) 1 %; HCT 51.5 % (39.0-53.0); HGB 18.2 gm/dL (13.0-17.5); Lymphocytes # (A) 0.9 k/uL (1.0-4.8); Lymphocytes % (A) 6 %; MCH 29.7 pg (25.0-35.0); MCHC 35.3 g/dL (31.0-37.0); MCV 84.1 fL (80.0-100.0); Monocytes # (A) 0.7 k/uL (0-1.0); Monocytes % (A) 4 %; Neutrophils # (A) 14.5 k/uL (1.3-7.7); Neutrophils % (A) 88 %; Platelet Count 323 k/uL (150-450); RBC 6.13 m/uL (4.30-5.90); RDW 12.6 % (11.5-15.5); WBC 16.5 k/uL (3.8-10.6)
[2019-03-20 08:09] LABS: Partial Thromboplastin Time 25.3 sec (22.0-30.0); Prothrombin Time 10.7 sec (9.0-12.0)
[2019-03-20 08:18] LABS: ALT 91 U/L (4-49); AST 32 U/L (17-59); African American GFR (CKD) >90 (>60 ml/min/1.73 sqM); Albumin 4.4 g/dL (3.5-5.0); Alkaline Phosphatase 80 U/L (38-126); Anion Gap 13 mmol/L; Blood Urea Nitrogen 14 mg/dL (9-20); Calcium 10.1 mg/dL (8.4-10.2); Carbon Dioxide 20 mmol/L (22-30); Chloride 109 mmol/L (98-107); Glucose 132 mg/dL (74-99); Non-African American GFR(CKD) >90 (>60 ml/min/1.73 sqM); Potassium 4.1 mmol/L (3.5-5.1); Sodium 142 mmol/L (137-145); Total Bilirubin 1.6 mg/dL (0.2-1.3); Total Protein 7.9 g/dL (6.3-8.2)
--- NOTE | 2019-03-20 09:02 | CT ---
EXAMINATION TYPE: CT abdomen pelvis w con DATE OF EXAM: 03/20/2019 REFERENCE: NONE HISTORY: Abdominal pain, postop gallbladder HISTORY: S/P Cholecystectomy x [address] DLP: 2607.3 mGy Automated exposure control for dose reduction was used. TECHNIQUE: Helical acquisition through the abdomen and pelvis was obtained following the oral ingesti on of with Oral Contrast and following intravenous administration of 100 ml mL of Isovue 300. The miguel a was reformatted in axial, coronal and sagittal projections. FINDINGS: Visualized portions of the lungs are clear. There is no pleural or pericardial fluid. The heart is upper limits of normal in size. Within the abdomen, the liver is prominent measuring 21 cm. There is fluid within the gallbladder fos sa. There is a small calcification within the gallbladder fossa. The spleen is unremarkable. Both adrenal glands are normal. Both kidneys demonstrate function and appear morphologically normal. The pancreas is unremarkable. There is no significant retroperitoneal, iliac or inguinal adenopathy. The bladder is unremarkable. There is no significant diverticular change and there is no radiographic evidence of diverticulitis. There is collapse of the transverse colon making it difficult to assess bowel wall thickness. The navin endix is normal. There is a surgical drain in place in the right lower quadrant. This extends superiorly behind the qu adrate lobe and is not situated within the gallbladder fossa. Small bowel loops are normal. There is no significant free fluid or free air. There is minor hypertrophic spondylosis in the lower dorsal spine. IMPRESSION: 1. GALLBLADDER DRAIN MAY BE MALPOSITIONED. 2. THERE IS FLUID IN THE GALLBLADDER FOSSA WELL A SMALL CALCIFICATION WHICH MAY REPRESENT A THUAN PPED STONE. DEVELOPING ABSCESS IS NOT EXCLUDED. 3. HEPATOMEGALY. 4. BORDERLINE CARDIOMEGALY. 5. COLLAPSE OF THE TRANSVERSE COLON. PLEASE CORRELATE CLINICALLY TO EXCLUDE COLITIS.
[2019-03-20] MEDS ORDERED: AMPICILLIN-SULBACTAM 3 GM in SODIUM CHLORIDE 0.9% 100 ML IVPB STA (09:48)
--- NOTE | 2019-03-20 09:49 | XR ---
EXAMINATION TYPE: XR chest 2V DATE OF EXAM ORDERED: 03/20/2019 HISTORY: Fever. REFERENCE: None. FINDINGS: The lungs are clear. Pleural spaces are clear. Heart size is normal. IMPRESSION: NORMAL CHEST.
[2019-03-20] MEDS ORDERED: NALOXONE 0.4 MG/ML 1 ML VIAL IV PRN (09:59)
[2019-03-20] MEDS ORDERED: ONDANSETRON 4 MG/2 ML VIAL IVP PRN (09:59)
[2019-03-20] MEDS: SODIUM CHLORIDE 0.9% 1,000 ML IV SCH ×3 (10:45→20:18)
[2019-03-20 11:26] LABS: Appearance,Urine Clear (Clear); Bilirubin,Urine Negative (Negative); Blood,Urine Negative (Negative); Color,Urine Yellow; Glucose,Urine (UA) Negative (Negative); Ketones,Urine 1+ (Negative); Leukocyte Esterase,Urine Negative (Negative); Mucus,Urine Rare /hpf; Nitrite,Urine Negative (Negative); Protein,Urine 1+ (Negative); RBC,Urine 2 /hpf (0-5); Specific Gravity,Urine 1.045 (1.001-1.035); Squamous Epithelial Cell,Urine <1 /hpf (0-4); Urobilinogen,Urine <2.0 mg/dL (<2.0); WBC,Urine 1 /hpf (0-5)
[2019-03-20] MEDS: HYDROmorphone 1 MG/ML 1 ML SYRINGE IVP PRN ×3 (12:32→20:18)
[2019-03-20 13:39] VITALS: BMI 39.1
--- NOTE | 2019-03-20 14:37 | P.GSHP ---
History of Present Illness H&P Date: 03/20/19 Chief Complaint: right upper quadrant pain this is a [age] male who underwent recent laparoscopically stenting for acute transmural cholecystitis. Patient is very inflamed gallbladder at the time for surgery. Patient states he developed some epigastric right upper quadrant pain. Patient was admitted through the emergency room for treatment of leukocytosis. White count 16,000. He currently is hungry. Past Medical History Past Medical History: No Reported History History of Any Multi-Drug Resistant Organisms: None Reported Past Surgical History: Cholecystectomy Past Psychological History: No Psychological Hx Reported Smoking Status: Never smoker Past Alcohol Use History: None Reported Past Drug Use History: Marijuana - Past Family History Father Additional Family Medical History / Comment(s): some kind of mass in the head Mother Additional Family Medical History / Comment(s): twisted intestine Medications and Allergies Home Medications Medication Instructions Recorded Confirmed Type Amoxic-Pot Clav 875-125Mg 1 tab PO Q12HR #6 tablet 03/17/19 03/20/19 Rx [Augmentin 875-125] Hydrocodone/Acetaminophen [[place] 1 tab PO Q6HR PRN 3 Days #12 tab 03/17/19 03/20/19 Rx 5-325] Allergies Allergy/AdvReac Type Severity Reaction Status Date / Time No Known Allergies Allergy Verified 03/20/19 08:22 Surgical - Exam Vital Signs Temp Pulse Resp BP Pulse Ox 99.1 F 72 20 172/102 97 03/20/19 07:05 03/20/19 07:05 03/20/19 07:05 03/20/19 07:05 03/20/19 07:05 - General well developed, well nourished, no distress - Eyes PERRL - ENT normal pinna - Neck no masses - Respiratory normal expansion - Cardiovascular Rhythm: regular - Abdomen Abdomen: soft, non tender Results - Labs 03/20/19 07:30 03/20/19 07:30 Abnormal Lab Results - Last 24 Hours (Table) 03/20/19 03/20/19 03/20/19 Range/Units 07:30 07:30 11:00 WBC 16.5 H (3.8-10.6) k/uL RBC 6.13 H (4.30-5.90) m/uL Hgb 18.2 H (13.0-17.5) gm/dL Neutrophils # 14.5 H (1.3-7.7) k/uL Lymphocytes # 0.9 L (1.0-4.8) k/uL Chloride 109 H (98-107) mmol/L Carbon Dioxide 20 L (22-30) mmol/L Glucose 132 H (74-99) mg/dL Total Bilirubin 1.6 H (0.2-1.3) mg/dL ALT 91 H (4-49) U/L Ur Specific [place] 1.045 H (1.001-1.035) Urine Protein 1+ H (Negative) Urine Ketones 1+ H (Negative) Urine Mucus Rare H (None) /hpf Diabetes panel 03/20/19 Range/Units 07:30 Sodium 142 (137-145) mmol/L Potassium 4.1 (3.5-5.1) mmol/L Chloride 109 H (98-107) mmol/L Carbon Dioxide 20 L (22-30) mmol/L BUN 14 (9-20) mg/dL Creatinine 0.72 (0.66-1.25) mg/dL Glucose 132 H (74-99) mg/dL Calcium 10.1 (8.4-10.2) mg/dL AST 32 (17-59) U/L ALT 91 H (4-49) U/L Alkaline Phosphatase 80 (38-126) U/L Total Protein 7.9 (6.3-8.2) g/dL Albumin 4.4 (3.5-5.0) g/dL Calcium panel 03/20/19 Range/Units 07:30 Calcium 10.1 (8.4-10.2) mg/dL Albumin 4.4 (3.5-5.0) g/dL Pituitary panel 03/20/19 Range/Units 07:30 Sodium 142 (137-145) mmol/L Potassium 4.1 (3.5-5.1) mmol/L Chloride 109 H (98-107) mmol/L Carbon Dioxide 20 L (22-30) mmol/L BUN 14 (9-20) mg/dL Creatinine 0.72 (0.66-1.25) mg/dL Glucose 132 H (74-99) mg/dL Calcium 10.1 (8.4-10.2) mg/dL Adrenal panel 03/20/19 Range/Units 07:30 Sodium 142 (137-145) mmol/L Potassium 4.1 (3.5-5.1) mmol/L Chloride 109 H (98-107) mmol/L Carbon Dioxide 20 L (22-30) mmol/L BUN 14 (9-20) mg/dL Creatinine 0.72 (0.66-1.25) mg/dL Glucose 132 H (74-99) mg/dL Calcium 10.1 (8.4-10.2) mg/dL Total Bilirubin 1.6 H (0.2-1.3) mg/dL AST 32 (17-59) U/L ALT 91 H (4-49) U/L Alkaline Phosphatase 80 (38-126) U/L Total Protein 7.9 (6.3-8.2) g/dL Albumin 4.4 (3.5-5.0) g/dL Assessment and Plan Assessment: abdominal pain status post laparoscopically stenting for acute cholecystitis. Patient will continue IV antibiotics and will be observed closely. His HILLARY drain has serosanguineous drainage.
[2019-03-20] MEDS: AMPICILLIN-SULBACTAM 3 GM in SODIUM CHLORIDE 0.9% 100 ML IVPB SCH (20:18)
[2019-03-21] MEDS: HYDROmorphone 1 MG/ML 1 ML SYRINGE IVP PRN ×4 (00:07→12:41)
[2019-03-21] MEDS: AMPICILLIN-SULBACTAM 3 GM in SODIUM CHLORIDE 0.9% 100 ML IVPB SCH ×3 (04:54→19:48)
[2019-03-21 07:25] LABS: Basophils # (A) 0.1 k/uL (0-0.2); Basophils % (A) 0 %; Eosinophils # (A) 0.7 k/uL (0-0.7); Eosinophils % (A) 6 %; HCT 48.4 % (39.0-53.0); HGB 16.4 gm/dL (13.0-17.5); Lymphocytes # (A) 2.4 k/uL (1.0-4.8); Lymphocytes % (A) 20 %; MCH 29.5 pg (25.0-35.0); MCV 86.8 fL (80.0-100.0); Mean Platelet Volume 6.9; Monocytes # (A) 0.9 k/uL (0-1.0); Monocytes % (A) 8 %; Neutrophils # (A) 7.6 k/uL (1.3-7.7); Neutrophils % (A) 64 %; Platelet Count 287 k/uL (150-450); RBC 5.58 m/uL (4.30-5.90); RDW 12.7 % (11.5-15.5); WBC 11.8 k/uL (3.8-10.6)
[2019-03-21 07:45] LABS: ALT 66 U/L (4-49); AST 27 U/L (17-59); African American GFR (CKD) >90 (>60 ml/min/1.73 sqM); Albumin 3.4 g/dL (3.5-5.0); Alkaline Phosphatase 59 U/L (38-126); Anion Gap 9 mmol/L; Blood Urea Nitrogen 11 mg/dL (9-20); Calcium 9.3 mg/dL (8.4-10.2); Carbon Dioxide 23 mmol/L (22-30); Chloride 107 mmol/L (98-107); Glucose 92 mg/dL (74-99); Non-African American GFR(CKD) >90 (>60 ml/min/1.73 sqM); Potassium 4.1 mmol/L (3.5-5.1); Sodium 139 mmol/L (137-145); Total Protein 6.5 g/dL (6.3-8.2)
[2019-03-21] MEDS: PANTOPRAZOLE 40 MG/10 ML VIAL IV SCH (08:08)
[2019-03-21] MEDS: SODIUM CHLORIDE 0.9% 1,000 ML IV SCH ×2 (08:37→12:46)
--- NOTE | 2019-03-21 15:38 | P.CONS ---
History of Present Illness - Reason for Consult Consult date: 03/21/19 Medical management Requesting physician: Jed Lamb - Chief Complaint Abdominal pain - History of Present Illness 33-year-old male with PMH of cholecystectomy that recently underwent gallbladder stenting for acute cholecystitis presents the ED for right upper quadrant pain. Patient states that he underwent surgery on the and was discharged in good spirit. Patient states after he went home he felt constipated. Him and his girlfriend decided that a fatty meal would help with his constipation and ate some yoruba fries. Patient states that he ate around 11 AM and started experiencing epigastric discomfort around 2 PM. Pain was initially in the epigastric area which transitioned into the right upper quadrant. His pain was associated with multiple episodes of nonbilious nonbloody nausea and vomiting. When symptoms persisted this prompted the patient to come to the ED. He denied any headache, lower extremity edema, fever or chills, cough, chest pain, shortness of breath, palpitations, changes in urination. No changes in appetite or weight. No dizziness, numbness/weakness/tingling of the extremities. In the ED, vital signs are stable except for low-grade fever of 99.1 Fahrenheit. Blood pressure was also elevated at 156/81. CBC shows a leukocytosis of 16.5. CMP showed chloride of 109 and bicarbonate of 20. Glucose is 132. Total bilirubin is 1.6, ALT 91. Chest x-ray was negative. CT abdomen and pelvis showed gallbladder drain possible malpositioning, fluid and small calcification in the gallbladder fossa, collapse of the transverse colon. Patient is admitted to general surgery for IV antibiotics and pain control. Review of Systems Pertinent positives and negatives as discussed in HPI, a complete review of systems was performed and all other systems are negative. Past Medical History Past Medical History: No Reported History History of Any Multi-Drug Resistant Organisms: None Reported Past Surgical History: Cholecystectomy Past Psychological History: No Psychological Hx Reported Smoking Status: Never smoker Past Alcohol Use History: None Reported Past Drug Use History: Marijuana - Past Family History Father Additional Family Medical History / Comment(s): some kind of mass in the head Mother Additional Family Medical History / Comment(s): twisted intestine Medications and Allergies Home Medications Medication Instructions Recorded Confirmed Type Amoxic-Pot Clav 875-125Mg 1 tab PO Q12HR #6 tablet 03/17/19 03/20/19 Rx [Augmentin 453-793] Hydrocodone/Acetaminophen [[place] 1 tab PO Q6HR PRN 3 Days #12 tab 03/17/19 03/20/19 Rx 5-325] Allergies Allergy/AdvReac Type Severity Reaction Status Date / Time No Known Allergies Allergy Verified 03/20/19 08:22 Physical Exam Vitals: Vital Signs Temp Pulse Resp BP Pulse Ox 03/21/19 07:00 98.0 F 76 18 141/82 96 03/21/19 00:42 98.2 F 78 18 134/76 96 03/20/19 19:16 98.1 F 95 18 158/94 96 Intake and Output 03/21/19 03/21/19 03/21/19 06:59 14:59 22:59 Intake Total 1560 1620 Balance 1560 1620 Intake: Intake, IV Titration 1560 1140 Amount Ampicillin-Sulbactam 3 gm 100 In Sodium Chloride 0.9% 100 ml @ 200 mls/hr IVPB Q8H [facility] Rx#:[id number] Sodium Chloride 0.9% 1, 1560 1040 000 ml @ 130 mls/hr IV . Q7H42M [facility] Rx#:[id number] Oral 480 Other: # Voids 1 General: [non toxic], [no distress and obese], [appears at stated age] Derm: [warm], [dry] Head: [atraumatic], [normocephalic], [symmetric] Eyes: [EOMI], [no lid lag], [anicteric sclera] Mouth: [no lip lesion], [mucus membranes moist] Cardiovascular: [S1S2 reg], [no murmur], [positive posterior tibial pulse bilateral], Lungs: [CTA bilateral], [no rhonchi, no rales] , [no accessory muscle use] Abdominal: [soft], [tenderness to palpation in the right upper quadrant without rebound], [no guarding], [no appreciable organomegaly], [HILLARY drain with minimal serosanguineous discharge and no erythema] Ext: [no gross muscle atrophy], [no edema], [no contractures] Neuro: [no focal neuro deficits] Psych: [Alert], [oriented], [appropriate affect] Results CBC & Chem 7: 03/21/19 06:47 03/21/19 06:47 Labs: Abnormal Lab Results - Last 24 Hours (Table) 03/21/19 03/21/19 Range/Units 06:47 06:47 WBC 11.8 H (3.8-10.6) k/uL Total Bilirubin 2.0 H (0.2-1.3) mg/dL ALT 66 H (4-49) U/L Albumin 3.4 L (3.5-5.0) g/dL Microbiology - Last 24 Hours (Table) 03/20/19 07:45 Blood Culture - Preliminary Blood No Growth after 24 hours Assessment and Plan Assessment: Right upper quadrant abdominal pain with history of cholecystitis status post stenting Leukocytosis Transaminitis CT abdomen and pelvis shows possible malpositioning of gallbladder, fluid in the gallbladder fossa with possible dropped stone developing abscess not excluded, hepatomegaly and collapse of the transverse colon. Plans: Continue Unasyn. Zofran as needed for nausea or vomiting. Protonix IV daily. Normal sinus at 130 mL per hour. Pain control with Dilaudid as needed. Management as per general surgery. Leukocytosis of 16.5-11.8. Patient's WBC count was 13.5 on discharge on 03/17/2019 post stent. Possibly reactive. No signs of infection. Blood cultures negative at 24 hours. Plans: Continue IV antibiotics as above. Follow blood culture. Total bilirubin 2, ALT 66. Possibly related to dropped stone. Plans: Repeat CMP tomorrow morning. [Patient admitted for pain control and IV antibiotics. Recent gallbladder stenting by general surgery. He is pending clinical improvement. Likely DC in 1-2 days.]
[2019-03-22] MEDS: AMPICILLIN-SULBACTAM 3 GM in SODIUM CHLORIDE 0.9% 100 ML IVPB SCH (04:48)
[2019-03-22] MEDS: SODIUM CHLORIDE 0.9% 1,000 ML IV SCH ×2 (04:50→08:52)
[2019-03-22] MEDS: PANTOPRAZOLE 40 MG/10 ML VIAL IV SCH (07:13)
[2019-03-22 07:16] VITALS: BP 136/81; PULSE 73; RESP 16; TEMP 98.1
[2019-03-22 07:53] LABS: Basophils % (A) 0 %; Eosinophils # (A) 0.7 k/uL (0-0.7); Eosinophils % (A) 7 %; HCT 46.8 % (39.0-53.0); Lymphocytes % (A) 20 %; MCH 29.2 pg (25.0-35.0); MCHC 34.2 g/dL (31.0-37.0); MCV 85.3 fL (80.0-100.0); Mean Platelet Volume 7.1; Monocytes # (A) 0.7 k/uL (0-1.0); Monocytes % (A) 7 %; Neutrophils # (A) 6.4 k/uL (1.3-7.7); Neutrophils % (A) 64 %; Platelet Count 268 k/uL (150-450); RBC 5.48 m/uL (4.30-5.90); RDW 12.4 % (11.5-15.5); WBC 10.1 k/uL (3.8-10.6)
--- NOTE | 2019-03-22 08:15 | P.PN ---
Progress Note - Text Progress Note Date: 03/21/19 the patient states he feels better. He has decreased abdominal pain. On exam his vital signs are stable. His abdomen soft. There is some serosanguineous drainage in the HILLARY drain. There is no significant bile. Status post laparoscopically stenting for acute and chronic cholecystitis. Patient will be continued be observed. His leukocytosis improved.
[2019-03-22 08:17] LABS: ALT 52 U/L (4-49); AST 24 U/L (17-59); African American GFR (CKD) >90 (>60 ml/min/1.73 sqM); Albumin 3.4 g/dL (3.5-5.0); Alkaline Phosphatase 58 U/L (38-126); Anion Gap 9 mmol/L; Blood Urea Nitrogen 10 mg/dL (9-20); Calcium 9.2 mg/dL (8.4-10.2); Carbon Dioxide 22 mmol/L (22-30); Chloride 108 mmol/L (98-107); Glucose 91 mg/dL (74-99); Non-African American GFR(CKD) >90 (>60 ml/min/1.73 sqM); Potassium 4.1 mmol/L (3.5-5.1); Sodium 139 mmol/L (137-145); Total Bilirubin 1.8 mg/dL (0.2-1.3); Total Protein 6.4 g/dL (6.3-8.2)
--- NOTE | 2019-03-22 11:19 | P.DS ---
Providers Date of admission: 03/20/19 09:59 Expected date of discharge: 03/22/19 Attending physician: Jed Lamb Consults: 03/20/19 14:37 Consult Physician Routine Consulting Provider: Raine Hansen Consult Reason/Comments: medical management Do you want consulting provider notified?: Yes Primary care physician: Stated None Hospital Course: 33-year-old male who recently underwent laparoscopic cholecystectomy with Dr. Lamb. Patient also underwent ERCP at that time with biliary sphincterotomy and balloon stone extraction. Patient presented back to the emergency room due to abdominal pain. Patient's white count was found to be 16.5 on admission. He was treated with IV antibiotics. Most recent WBC 10.1. Patient's abdominal pain has resolved. He is stable for discharge home today per Dr. Lamb. He is prescribed Levaquin for one week at the time of discharge per Dr. Lamb. Please see EMR for further hospital course details. DC Diagnosis: 1. Postoperative pain 2. Recent laparoscopic cholecystectomy for acute on chronic cholecystitis 3. Recent ERCP with biliary sphincterotomy and balloon stone extraction 4. Leukocytosis, resolved Nurse practitioner note has been reviewed by physician. Signing provider agrees with the documented findings, assessment, and plan of care. Plan - Discharge Summary Discharge Rx Participant: No New Discharge Prescriptions: No Action Hydrocodone/Acetaminophen [[place] 5-325] 1 tab PO Q6HR PRN 3 Days #12 tab PRN Reason: Pain Amoxic-Pot Clav 875-125Mg [Augmentin 875-125] 1 tab PO Q12HR #6 tablet Discharge Medication List Amoxic-Pot Clav 875-125Mg [Augmentin 875-125] 1 tab PO Q12HR #6 tablet 03/17/19 [Rx] Hydrocodone/Acetaminophen [[place] 5-325] 1 tab PO Q6HR PRN 3 Days #12 tab 03/17/19 [Rx] Follow up Appointment(s)/Referral(s): None,Stated [Primary Care Provider] - 1-2 days Jed Lamb MD [STAFF PHYSICIAN] - 1 Week
== END 2019-03-22 13:26 | disposition home or self-care (01) ==
LOC: EC 06:56 → 4SSUR 09:59
PROVIDERS: ADMIT Surgery; ATTEND Surgery
DX: R50.82 Postprocedural fever (principal); G89.18 Other acute postprocedural pain; Z90.49 Acquired absence of other specified parts of digestive tract; R10.9 Unspecified abdominal pain; R11.2 Nausea with vomiting, unspecified; D72.829 Elevated white blood cell count, unspecified; Z96.89 Presence of other specified functional implants; R74.0 Nonspecific elevation of levels of transaminase and lactic acid dehydrogenase [LDH]; E66.01 Morbid (severe) obesity due to excess calories; Z68.39 Body mass index [BMI] 39.0-39.9, adult
CPT/HCPCS: 96376 ×3; 96361 ×3; 96366 ×2; 96367; 96375 ×2; 96365; 99285; 36415; 94760; 93005; 80053 ×3; 83605; 85025 ×3; 85610; 85730; 81001; 87040; 71046; 74177; G0378 ×3; J2405; J1170 ×2; J0295 ×3; C9113 ×2; Q9967

== ENCOUNTER 2022-04-05 14:21 | Emergency (ER) | payer BC ==
--- NOTE | 2022-04-05 14:51 | ED ---
General Adult HPI <Tonio Perez - Last Filed: 04/05/22 15:24> <Cele Hyman - Last Filed: 04/05/22 20:55> - General Stated complaint: left leg injury Time Seen by Provider: 04/05/22 14:50 - History of Present Illness Initial comments: Patient seen for advanced triage history: Patient injured in left ankle about an hour and a half prior to arrival. He was walking down a ramp and fell. His foot was stuck to the left. He moved it back into place. Currently rating pain a 7/10. (Tonio Perez) Quick note reviewed: A 36-year-old male to the emergency department complaining of left ankle pain. He reports that he was walking up a ramp that he felt for his dog and fell. He reports he looked down at his left ankle and it was turned out. He reports her moved it back into place. He has not tried anything for pain. Denies numbness, tingling, dizziness. He denies hitting his head, LOC, anticoagulant use. (Cele Hyman) - Related Data Home Medications Medication Instructions Recorded Confirmed No Known Home Medications 04/05/22 04/05/22 Allergies Allergy/AdvReac Type Severity Reaction Status Date / Time No Known Allergies Allergy Verified 04/05/22 20:12 Review of Systems ROS Other: All systems not noted in ROS Statement are negative. <Tonio Perez - Last Filed: 04/05/22 15:24> ROS Other: All systems not noted in ROS Statement are negative. <Cele Hyman - Last Filed: 04/05/22 20:55> ROS Statement: Those systems with pertinent positive or pertinent negative responses have been documented in the HPI. Past Medical History Past Medical History: No Reported History History of Any Multi-Drug Resistant Organisms: None Reported Past Surgical History: Cholecystectomy Past Psychological History: No Psychological Hx Reported Past Alcohol Use History: None Reported Past Drug Use History: Marijuana - Past Family History Father Additional Family Medical History / Comment(s): some kind of mass in the head Mother Additional Family Medical History / Comment(s): twisted intestine <Tonio Perez - Last Filed: 04/05/22 15:24> General Exam General appearance: alert, in no apparent distress Head exam: Present: atraumatic, normocephalic, normal inspection Eye exam: Present: normal appearance, PERRL, EOMI. Absent: scleral icterus, conjunctival injection, periorbital swelling ENT exam: Present: normal exam, mucous membranes moist Neck exam: Present: normal inspection. Absent: tenderness, meningismus, lymphadenopathy Respiratory exam: Present: normal lung sounds bilaterally. Absent: respiratory distress, wheezes, rales, rhonchi, stridor Cardiovascular Exam: Present: regular rate, normal rhythm, normal heart sounds. Absent: systolic murmur, diastolic murmur, rubs, gallop, clicks GI/Abdominal exam: Present: soft, normal bowel sounds. Absent: distended, tenderness, guarding, rebound, rigid Extremities exam: Present: normal inspection, full ROM, normal capillary refill. Absent: tenderness, pedal edema, joint swelling, calf tenderness Left Ankle exam: Present: tenderness, swelling (significant edema to medial malleolus region with ecchymosis. Tender to palpation, limited ROM secondary to pain. 2+ DT/PT pulses, distal NVI. No crepitus). Absent: normal inspection, full ROM Back exam: Present: normal inspection Neurological exam: Present: alert, oriented X3, CN II-XII intact Psychiatric exam: Present: normal affect, normal mood Skin exam: Present: warm, dry, intact, normal color. Absent: rash <Cele Hyman - Last Filed: 04/05/22 20:55> Course Vital Signs 04/05/22 14:50 Temperature 97.7 F Pulse Rate 86 Respiratory 16 Rate Blood Pressure 169/110 O2 Sat by Pulse 97 Oximetry Medical Decision Making <Cele Hyman - Last Filed: 04/05/22 20:55> - Medical Decision Making Was pt. sent in by a medical professional or institution (, PA, HEMATOLOGY SUPERVISOR, urgent care, hospital, or care home...) When possible be specific @ -Self Did you speak to anyone other than the patient for history (EMS, parent, family, police, friend...)? What history was obtained from this source @ -[No] Did you review nursing and triage notes (agree or disagree)? Why? @ -[I reviewed and agree with nursing and triage notes] Were old charts reviewed (outside hosp., previous admission, EMS record, old EKG, old radiological studies, urgent care reports/EKG's, care home records)? Report findings @ -[No old charts were reviewed] Differential Diagnosis (chest pain, altered mental status, abdominal pain women, abdominal pain men, vaginal bleeding, weakness, fever, dyspnea, syncope, headache, dizziness, GI bleed, back pain, seizure, CVA, palpatations, mental health)? @ -[not applicable] EKG interpreted by me (3pts min.). @ -[As above] X-rays interpreted by me (1pt min.). @ - Oblique fracture of the distal shaft of the fibula, with 2 x 1 cm nondisplaced chip fracture of posterior malleolus. CT interpreted by me (1pt min.). @ -[None done] U/S interpreted by me (1pt. min.). @ -[None done] What testing was considered but not performed or refused? (CT, X-rays, U/S, labs)? Why? @ -[None] What meds were considered but not given or refused? Why? @ -[None] Did you discuss the management of the patient with other professionals (professionals i.e. , PA, HEMATOLOGY SUPERVISOR, lab, RT, psych nurse, sr. social media & mobile manager, blow machine tender starch spraying, teacher, electoral officer, correctional counselor/case manager)? Give summary @ - case discussed with Varun Yu information security specialist who recommends to apply posterior mold splint and follow up with his office 04/07/2021 Was smoking cessation discussed for >3mins.? @ -[No] Was critical care preformed (if so, how long)? @ -[No] Were there social determinants of health that impacted care today? How? (Homelessness, low income, unemployed, alcoholism, drug addiction, transportation, low edu. Level, literacy, decrease access to med. care, halfway, rehab)? @ -[No] Was there de-escalation of care discussed even if they declined (Discuss DNR or withdrawal of care, Hospice)? DNR status @ -[No] What co-morbidities impacted this encounter? (DM, HTN, Smoking, COPD, CAD, Cancer, CVA, ARF, Chemo, Hep., AIDS, mental health diagnosis, sleep apnea, morbid obesity)? @ -[None] Was patient admitted / discharged? Hospital course, mention meds given and route, prescriptions, significant lab abnormalities, going to OR and other pertinent info. @ -36-year-old male presents to the emergency department for left ankle pain. Patient was seen and evaluated imaging results remarkable for left fibular fracture. I discussed the results in detail with the patient shows was understanding and return precautions were discussed. I discussed the case with Dr. House who agrees with plan for discharge with recommended follow-up and 1-2 days with orthopedics. Undiagnosed new problem with uncertain prognosis? @ -L fibula fracture Drug Therapy requiring intensive monitoring for toxicity (Heparin, Nitro, Insulin, Cardizem)? @ -[No] Were any procedures done? @ -splint applied Diagnosis/symptom? @ L fibula fracture Acute, or Chronic, or Acute on Chronic? @ -acute Uncomplicated (without systemic symptoms) or Complicated (systemic symptoms)? @ -uncomplicated Side effects of treatment? @ -[No] Exacerbation, Progression, or Severe Exacerbation? @ -[No] Poses a threat to life or bodily function? How? (Chest pain, [place], [place], pneumonia, PE, COPD, DKA, ARF, appy, cholecystitis, CVA, Diverticulitis, Homicidal, Suicidal, threat to staff... and all critical care pts) @ -[No] (Cele Hyman) Disposition <Tonio Perez - Last Filed: 04/05/22 15:24> Is patient prescribed a controlled substance at d/c from ED?: No Time of Disposition: 20:14 <Cele Hyman - Last Filed: 04/05/22 20:55> Clinical Impression: Fracture of fibula Disposition: HOME SELF-CARE Condition: Stable Instructions (If sedation given, give patient instructions): Ankle Fracture (ED) Referrals: None,Stated [Primary Care Provider] - 1-2 days Dennis Michael MD [STAFF PHYSICIAN] - 1-2 days
[2022-04-05 14:52] VITALS: TEMP 97.7
--- NOTE | 2022-04-05 15:21 | XR ---
EXAMINATION TYPE: XR ankle complete LT DATE OF EXAM: 04/05/2022 COMPARISON: NONE HISTORY: Pain TECHNIQUE: 3 views FINDINGS: There is oblique fracture of the distal shaft of the fibula with 50% lateral displacement o f the distal fragment. There is a 2 x 1 cm nondisplaced chip fracture of the posterior malleolus. The re is mild posterior displacement of the talus on the lateral view. There is soft tissue swelling silas und the ankle joint. IMPRESSION: Fractures of the tibia and fibula as above with partial posterior dislocation of the talu s.
[2022-04-05] MEDS ORDERED: MORPHINE SULFATE 2 MG/ML SYRINGE IVP ONE (17:32)
[2022-04-05] MEDS ORDERED: HYDROmorphone 1 MG/ML 1 ML SYRINGE IM STA (18:14)
[2022-04-05] MEDS ORDERED: HYDROmorphone 1 MG/ML 1 ML SYRINGE IVP STA (18:29)
--- NOTE | 2022-04-05 19:38 | CT ---
EXAMINATION TYPE: CT lower extremity LT wo con DATE OF EXAM: 04/05/2022 COMPARISON: None HISTORY: Left ankle FX CT DLP: 101.6 mGycm Automated exposure control for dose reduction was used. Images obtained from the mid tibia to the bottom of the calcaneus without contrast. There is comminuted 2 x 1 cm chip fracture of the posterior malleolus. Fracture line extends into the medial malleolus. There is a mildly displaced fracture distal shaft of the fibula. No dislocation. T he talus is in anatomic position . Talus and calcaneus are intact. The mid tarsal bones appear intact. There is some soft tissue swell ing around the ankle IMPRESSION: Comminuted large chip fracture without significant displacement of the posterior malleolus. No disloc ation. Soft tissue swelling. Mildly displaced distal shaft fracture of the fibula.
[2022-04-05] MEDS ORDERED: ACET/COD 300 MG/30 MG STARTER PACK 6 TAB BTL PO STA (20:01)
[2022-04-05] MEDS ORDERED: HYDROmorphone 0.5 MG/0.5 ML SYRINGE IVP STA (20:01)
[2022-04-05 20:51] VITALS: BP 133/74; PULSE 81; RESP 15
== END 2022-04-05 20:51 | disposition home or self-care (01) ==
LOC: EC 14:21
DX: S82.402A Unspecified fracture of shaft of left fibula, initial encounter for closed fracture (principal); F12.90 Cannabis use, unspecified, uncomplicated; W18.30XA Fall on same level, unspecified, initial encounter; Y93.K1 Activity, walking an animal
CPT/HCPCS: 73610; 73700; 99283; 96374; 96375; 96376; J2270; J1170 ×2

== ENCOUNTER 2022-04-18 11:51 | Day surgery (SDC) | payer BC ==
[2022-04-15 10:15] VITALS: BMI 42.3
[~2022-04-18 11:51] MED LIST: ceFAZolin 3 GM in SODIUM CHLORIDE 0.9% 100 ML IVPB PRN
[2022-04-18] MEDS ORDERED: DEXAMETHASONE SOD PHOSPHATE 4 MG/ML 1 ML VIAL IV ONE (12:36)
[2022-04-18] MEDS ORDERED: SCOPOLAMINE 1 MG/72 HR PATCH TRANSDERM ONE (12:36)
[2022-04-18] MEDS ORDERED: ONDANSETRON 4 MG/2 ML VIAL IVP ONE (12:36)
[2022-04-18] MEDS ORDERED: MIDAZOLAM 2 MG/2 ML VIAL IV PRN (12:36)
[2022-04-18] MEDS ORDERED: HYDROmorphone 0.5 MG/0.5 ML SYRINGE IVP PRN (12:36)
[2022-04-18] MEDS ORDERED: LACTATED RINGERS 1,000 ML IV SCH (12:36)
[2022-04-18] MEDS ORDERED: LACTATED RINGERS 1,000 ML IV ONE ×2 (12:51→15:58)
[2022-04-18] MEDS ORDERED: fentaNYL (PF) 50 MCG/1 ML VIAL IVP ONE (13:42)
--- NOTE | 2022-04-18 14:30 | P.ANPRN ---
Procedure Note - Anesthesia - Nerve Block Performed Left Adductor Canal Single Time Out Performed: Yes Date of Procedure: 04/18/22 Procedure Start Time: 13:42 Procedure Stop Time: 13:52 Location of Patient: PreOp Indication: Acute Post-Operative Pain, Requested by Surgeon Sedation Type: Sedate with meaningful contact maintained Preparation: Sterile Prep, Sterile Dressing Position: Supine Catheter: None Needle Types: Facet Needle Gauge: 20 Ultrasound used to visualize needle placement: Yes Ultrasound used to observe medication spread: Yes Injectate: 0.5% Ropivacaine (see comment for volume) (20 ml + decadron 4 mg) Blood Aspirated: No Pain Paresthesia on Injection Noted: No Resistance on Injection: Normal Image Stored and Saved: Yes Events: Uneventful and Well Tolerated Left Popliteal Single Time Out Performed: Yes Date of Procedure: 04/18/22 Procedure Start Time: 13:55 Procedure Stop Time: 14:05 Location of Patient: PreOp Indication: Acute Post-Operative Pain, Requested by Surgeon Sedation Type: Sedate with meaningful contact maintained Preparation: Sterile Prep, Sterile Dressing Position: Right Lateral Catheter: None Needle Types: Facet Needle Gauge: 20 Ultrasound used to visualize needle placement: Yes Ultrasound used to observe medication spread: Yes Injectate: 0.5% Ropivacaine (see comment for volume) (20 ml + decadron 4 mg) Blood Aspirated: No Pain Paresthesia on Injection Noted: No Resistance on Injection: Normal Image Stored and Saved: Yes Events: Uneventful and Well Tolerated
[2022-04-18] MEDS ORDERED: fentaNYL (PF) 50 MCG/ML 2 ML AMP ONE (14:39)
[2022-04-18] MEDS ORDERED: PROPOFOL 10 MG/ML 20 ML VIAL IV ONE (14:39)
[2022-04-18] MEDS ORDERED: ROCURONIUM 10 MG/ML (5 ML VIAL) IV ONE (14:39)
[2022-04-18] MEDS ORDERED: SUCCINYLCHOLINE CHLORIDE 200 MG/10 ML VIAL IV ONE (14:39)
[2022-04-18] MEDS ORDERED: ROPIVACAINE 5 MG/ML 30 ML VIAL ONE (14:39)
[2022-04-18] MEDS ORDERED: NEOSTIGMINE 1 MG/ML 10 ML VIAL ONE (14:39)
[2022-04-18] MEDS ORDERED: GLYCOPYRROLATE 0.2 MG/ML 2 ML VIAL ONE (14:39)
[2022-04-18] MEDS ORDERED: HYDROmorphone (PF) 1 MG/ML ONE (14:39)
[2022-04-18] MEDS ORDERED: MIDAZOLAM 2 MG/2 ML VIAL ONE (14:39)
[2022-04-18] MEDS ORDERED: DEXAMETHASONE SOD PHOSPHATE 4 MG/ML 1 ML VIAL ONE (14:39)
[2022-04-18] MEDS ORDERED: LIDOCAINE 2% INJ 20 MG/ML (2 ML VIAL) ONE (14:39)
[2022-04-18 17:29] VITALS: RESP 16; TEMP 97
[2022-04-18 18:09] VITALS: BP 148/90; PULSE 104
--- NOTE | 2022-04-20 21:07 | FL ---
Intraoperative/procedural fluoroscopic services were provided. Total fluoroscopy time is 50 seconds w ith a total of 3 submitted images to PACS. Please see the operative/procedural note for further detai ls.
--- NOTE | 2022-04-21 22:03 | OP ---
OPERATIVE REPORT PREOPERATIVE DIAGNOSES: 1. Displaced bimalleolar ankle fracture, left. 2. Syndesmotic rupture, left ankle. POSTOPERATIVE DIAGNOSES: 1. Displaced bimalleolar ankle fracture, left. 2. Syndesmotic rupture, left ankle. PROCEDURES PERFORMED: 1. Open reduction and internal fixation of left bimalleolar ankle fracture. 2. Open repair of syndesmosis, left ankle. ANESTHESIA: General with preoperative nerve block. HEMOSTASIS: Left thigh tourniquet at 250 mmHg. ESTIMATED BLOOD LOSS: 15 mL. MATERIALS: Arthrex recon plate with associated screws, Arthrex TightRope anchor, and Arthrex posterior tibial plate with screws. INJECTABLES: None. SPECIMENS: None. COMPLICATIONS: None. DESCRIPTION OF PROCEDURE: Prior to the patient being brought to the operating room, Anesthesia administered a nerve block on the left lower extremity. The patient was then brought into the operating room, where a time-out was taken to confirm correct patient identifiers, correct laterality of surgery, and correct procedure. When all staff in the room were in agreement with the time-out, the patient was induced and placed under general anesthesia. He was then placed on the operating room table in the prone position with appropriate padding beneath the chest and over the bony prominences. When anesthesia was satisfied with the position of the patient, a well-padded tourniquet was placed on the left thigh, and then the left leg was prepped and draped in the usual manner. The left leg was exsanguinated, and the tourniquet was inflated to 250 mmHg. Attention was directed over the posterolateral aspect of the ankle, where an incision was made between the lateral border of the Achilles tendon and the peroneal tendon. The incision was deepened down to the subcutaneous tissue careful to identify, avoid, and retract any neurovascular structures and cauterize any bleeding vessels. Blunt dissection was carried down to the fascia overlying the peroneal tendons and flexor hallucis longus muscle belly. The fascia was carefully incised, and then blunt dissection was continued through the septa between the peroneal tendons and FHL muscle belly, and that was dissected down to the posterolateral aspect of the tibia, and then a periosteal elevator was used to remove the soft tissues off the posterior aspect of the tibia to expose the posterolateral fracture fragment. On CT scan, it was noted that the patient had an osseous fragment between the posterior malleolar fracture and the body of the tibia, so a posterior ankle capsulotomy was performed, and visually, there was what appeared to be an osseous fragment in the joint that was removed, and upon inspection, it was a large osteochondral fragment, and that was removed from the joint in total. Then, fluoroscopy was used to check the overall alignment of the fracture, which showed that the fracture fragment was no longer between the posterior malleolus and the tibia. Therefore, it was likely that the portion removed intra- articularly was this piece, and upon further inspection, there was a large osteochondral fragment from the posterior aspect of the tibia at the tibiotalar joint. An osteotome was used to free any periosteal adhesions on the superior aspect of the fracture line, so that it could be reduced back into position. A large pick was used to grasp the fragment and pull inferiorly to realign the fracture, and as realignment was done under fluoroscopy, wires were passed through the fracture fragment to hold it in position, and fluoroscopy on the lateral view showed that there was good alignment of the fracture; however, there is discontinuity of the joint because of the osteochondral fragment. An Arthrex posterior tibial plate was then positioned and checked under fluoroscopy and adjusted until the position was satisfactory. The first screw placed was through the hole just superior to the fracture line. This was done first. It was done bicortically, so that the plate would contour well to the posterior tibia and also locked the fracture fragment into position, and once that was done, the inner fragmentary screws were placed through the plate avoiding the ankle joint, and fluoroscopic imaging showed reduction of the fracture and proper placement of the hardware on both the AP and lateral views. Once that was completed, the wound was thoroughly irrigated with antibiotic saline. A deep closure was done with 2-0 Vicryl. Subcutaneous closure was done with 4-0 Monocryl. Skin closure was done with ruth. A dry sterile dressing was applied to the left ankle, and then the tourniquet was released. Drapes were taken off the patient, at which point, he was rolled back onto the transfer table into the supine position and then transferred back onto the operative room table in supine position. The leg was re-prepped sterilely and draped and then exsanguinated, and the tourniquet was reinflated to 250 mmHg. Attention was then directed over the lateral aspect of the ankle, where fluoroscopy was used to outline the area of the fracture, which was then marked on the skin, and the incision was placed in the area. It was deepened down to the subcutaneous tissue careful to identify, avoid, and retract any neurovascular structures and cauterize any bleeding vessels. Blunt dissection was carried through the subcutaneous layer past the fascia, and then the peroneal tendons were bluntly elevated off the lateral aspect of the fibula. The fracture was identified, and any fracture fragments, hematoma, and soft tissue were removed. Then, guide pins for a distractor were placed on either side of the fracture, so that the fracture could be distracted back out to length. Once it was distracted out to length, it was then grasped with bone reduction forceps, and fluoroscopy showed that the length had been restored, and there was anatomic alignment of the fracture. A guidewire was placed across the fracture for temporary fixation, and then a large reconstruction plate was placed over the lateral malleolus. It was checked under fluoroscopy. It was shown that with the length of the plate, by adding a slightly longer plate, we could also accommodate the TightRope syndesmosis fixation. So, the original plate was removed and substituted for longer plate, which was then positioned over the fracture, so that a minimum of 2 screws could be placed distally and proximally to the fibular fracture. So, a combination of locking and nonlocking screws were placed on the proximal and distal aspects of the fracture to maintain length and provide stability. Fluoroscopy showed the proper placement of the hardware, and then distally, a drill hole was made through the last hole of the plate distally through the fibula and passed lateral to medial with slight anterior angulation for the placement of the TightRope. The drill was removed, and the TightRope was inserted until the button was clear of the medial tibial cortex, and then the button was deployed and manipulated, so it laid flat against the tibial cortex, at which point, the business project manager was removed, and then a large clamp was placed across our ankle joint and then placed under proper tension while holding the ankle maximally dorsiflexed for stabilization of the syndesmosis, and then the TightRope suture was pulled until the lateral button was firmly against the plate. Then, live fluoroscopy was used to check stability once the clamp was removed, and there was no gapping of the medial side or the syndesmosis. The suture was then cut, and the wound was irrigated with antibiotic saline. Deep closure was again done with 2-0 Vicryl. Subcutaneous closure was done with 3-0 Monocryl, and skin closure was done with ruth. Arthrex JumpStart dressings were placed over both incisions, and a bulky dry dressing was applied to the left ankle. The tourniquet was released, and capillary refill returned to all digits on the left foot. The patient was then placed in a well-padded well-molded plaster posterior mold/sugar-tong splint. The ankle was held in neutral position as it dried. Then, anesthesia was reversed, and the patient was taken to Recovery with vital signs stable. MMODL / IJN: [id number] /
== END 2022-04-18 18:27 | disposition home or self-care (01) ==
LOC: OR 11:51
PROVIDERS: ATTEND Podiatrist
DX: S82.852A Displaced trimalleolar fracture of left lower leg, initial encounter for closed fracture (principal); S93.492A Sprain of other ligament of left ankle, initial encounter; W10.2XXA Fall (on)(from) incline, initial encounter; G89.18 Other acute postprocedural pain; E66.01 Morbid (severe) obesity due to excess calories; Z68.41 Body mass index [BMI] 40.0-44.9, adult; Z79.1 Long term (current) use of non-steroidal anti-inflammatories (NSAID); Z90.49 Acquired absence of other specified parts of digestive tract; Z79.891 Long term (current) use of opiate analgesic
CPT/HCPCS: 64447; 64445; 76942; 73600; 27822; 27829; C1713; J2250; J0330; J1100; J2710; J0690; J2405; J3010 ×2; J1170; J2795; J2704; J2001